=== PATIENT | female | born 1990 | race American Indian/Alaskan Native ===

== ENCOUNTER 2016-11-04 23:30 | Inpatient (IN) | payer MEDICARE, MEDICAID ==
[2016-11-04 23:50] VITALS: BMI 23.6
[2016-11-05] MEDS ORDERED: Nitroglycerin 2% Ointment Foilpak UD TOP STA (00:03)
--- NOTE | 2016-11-05 00:04 | ED PDOC ---
Arrival/HPI - General Chief Complaint: Chest Pain Time Seen by Provider: 11/04/16 23:31 Historian: Patient - History of Present Illness Narrative History of Present Illness (Text): 11/05/16 00:00 Ry Mosqueda is a 25 year old female, with a history of AIDS, hypertension, asthma and ESRD on dialysis (M,W,F), presents to the emergency department complaining of chest pain since yesterday. Reports that pain is worsened with deep inspirations and position. Denies any fever, chills, headache , dizziness, shortness of breath, abdominal pain, nausea, vomiting, diarrhea, or any other complaints at this time. Time/Duration: Other (yesterday ) Symptom Onset: Gradual Symptom Course: Unchanged Severity Level: Mild Activities at Onset: Light Context: Home Past Medical History - Provider Review Nursing Documentation Reviewed: Yes - Cardiac Hx Hypertension: Yes - Pulmonary Hx Asthma: Yes - Renal Hx Dialysis: Yes Date of Last Dialysis Treatment: 10/31/16 Other/Comment: Kidney transplant - Hematological/Oncological Hx AIDS: Yes - Psychiatric Hx Substance Use: No - Surgical History Hx Cholecystectomy: Yes Hx Kidney Transplant: Yes - Anesthesia Hx Anesthesia: Yes Family/Social History - Physician Review Nursing Documentation Reviewed: Yes Family/Social History: No Known Family HX Smoking Status: Light Smoker < 10 Cigarettes Daily Hx Alcohol Use: No Hx Substance Use: No Allergies/Home Meds Allergies/Adverse Reactions: Allergies hydromorphone HCl [From Dilaudid] Adverse Reaction (Verified 11/04/16 23:54) ITCHING sulfamethoxazole [From Bactrim] Adverse Reaction (Verified 11/04/16 23:54) SHORTNESS OF BREATH trimethoprim [From Bactrim] Adverse Reaction (Verified 11/04/16 23:54) SHORTNESS OF BREATH Home Medications: Home Meds Medication Instructions Recorded Confirmed Abacavir Sulfate [Abacavir] 300 mg PO BID 11/05/16 11/05/16 Cinacalcet [Sensipar] 60 mg PO HS 11/05/16 11/05/16 Darunavir [Prezista] 800 mg PO DAILY 11/05/16 11/05/16 Enalapril Maleate [Vasotec] 20 mg PO DAILY 11/05/16 11/05/16 Labetalol Hydrochloride [Normodyne] 300 mg PO BID 11/05/16 11/05/16 Raltegravir Potassium [Isentress] 400 mg PO BID 11/05/16 11/05/16 Ritonavir [Norvir] 100 mg PO DAILY 11/05/16 11/05/16 Sevelamer Carbonate [Renvela] 2.4 gm PO TID 11/05/16 11/05/16 Tenofovir Disoproxil Fumarate 300 mg PO DAILY 11/05/16 11/05/16 [Viread] cloNIDine [Catapres] 0.3 mg PO BID 11/05/16 11/05/16 hydrALAZINE [Apresoline] 25 mg PO TID 11/05/16 11/05/16 Review of Systems - Physician Review All systems were reviewed & negative as marked: Yes - Review of Systems Constitutional: Normal. absent: Fatigue, Fevers Respiratory: absent: SOB, Cough, Sputum Cardiovascular: Chest Pain. absent: Palpitations Gastrointestinal: Normal. absent: Abdominal Pain, Diarrhea, Nausea, Vomiting Neurological: Normal. absent: Headache, Dizziness Psychiatric: Normal Physical Exam Vital Signs Reviewed: Yes Vital Signs Temp Pulse Resp BP Pulse Ox 11/05/16 05:15 99.5 F 95 H 18 145/90 97 11/05/16 03:16 92 H 18 158/104 H 94 L 11/05/16 01:30 99.8 F H 93 H 18 181/117 H 94 L 11/04/16 23:50 86 18 179/120 H 94 L Temperature: Afebrile Blood Pressure: Hypertensive Pulse: Regular Respiratory Rate: Normal Appearance: Positive for: Well-Appearing, Non-Toxic, Comfortable Pain Distress: None Mental Status: Positive for: Alert and Oriented X 3 - Systems Exam Head: Present: Atraumatic, Normocephalic Pupils: Present: PERRL Extroacular Muscles: Present: EOMI Conjunctiva: Present: Normal Respiratory/Chest: Present: Clear to Auscultation, Good Air Exchange. No: Respiratory Distress, Accessory Muscle Use Cardiovascular: Present: Regular Rate and Rhythm, Normal S1, S2. No: Murmurs Abdomen: Present: Normal Bowel Sounds. No: Tenderness, Distention, Peritoneal Signs Upper Extremity: Present: Normal Inspection. No: Cyanosis, Edema Lower Extremity: Present: Normal Inspection. No: Edema Neurological: Present: GCS=15, CN II-XII Intact, Speech Normal Skin: Present: Warm, Dry, Normal Color. No: Rashes Psychiatric: Present: Alert, Oriented x 3, Normal Insight, Normal Concentration Medical Decision Making ED Course and Treatment: 11/05/16 00:06 Impression: A 25 year old female who presents to the emergency department complaining of chest pain since yesterday. Denies any difficulty breathing. Plan: -- EKG -- Labs, cardiac enzymes -- Nitroglycerin -- Benadryl -- Dilaudid -- HCG -- Urinalysis -- Reassess and disposition Progress Notes: 11/05/16 00:08 EKG reviewed by me: NSR @ 86 bpm. T wave abnormality. Case discussed with who is aware and agrees with the plan to admit patient to the hospital. Accepts patient under hospitalist service. Patient evaluated bedside by medical reception. - Lab Interpretations Microbiology Results: Microbiology Results 11/06/16 06:30 Blood-Venous Blood Culture - Preliminary NO GROWTH AFTER 3 DAYS 11/06/16 06:30 Blood-Venous Blood Culture - Preliminary NO GROWTH AFTER 3 DAYS Lab Results: 11/06/16 06:30 11/06/16 06:30 Lab Results 11/06/16 07:30: Hepatitis A IgM Ab Negative, Hep Bs Antigen Negative, Hep B Core IgM Ab Negative, Hepatitis C Antibody Negative 11/06/16 06:30: WBC 6.1, RBC 3.71, Hgb 10.6 L, Hct 32.7 L, MCV 88.1, MCH 28.6, MCHC 32.4, RDW 17.0 H, Plt Count 132, MPV 9.7, Gran % 64.9, Lymph % (Auto) 23.9 , [place] % (Auto) 10.3 H, Eos % (Auto) 0.7 L, Baso % (Auto) 0.2, Gran # 3.99, Lymph # 1.5, [place] # 0.6, Eos # 0.0, Baso # 0.01, Sodium 137, Potassium 6.2 H*, Chloride 95 L, Carbon Dioxide 26, Anion Gap 22 H, BUN 52 H, Creatinine 10.1 H*, Est GFR ( Amer) 6, Est GFR (Non-Af Amer) 5, Random Glucose 91, Calcium 7.5 L, Total Bilirubin 0.7, AST 14 L, ALT < 6 L, Alkaline Phosphatase 125, Lactate Dehydrogenase 370, Total Creatine Kinase 77, Troponin I 0.07, Total Protein 8.0, Albumin 4.1, Globulin 3.9, Albumin/Globulin Ratio 1.1, Amylase 153 H, Lipase 84, Procalcitonin 1.13 H, Absolute Lymphs (Flow) 1274, % CD3 Cells 62 , Absolute CD3 Count 789 L, % CD3-/CD16+/CD56+ 8, % CD4 Cells 26 L, Absolute CD4 Count 328 L, T-Help/Suppress Ratio 0.73 L, % CD8 Cells 35, Absolute CD8 Count 447, Absolute CD16/CD56 Count 107, % CD19 Cells 27, Absolute CD19 Count 343, HIV-1 RNA Qnt (RT-PCR) <1.30 not detected 11/05/16 13:00: Influenza Typ A,B (EIA) Negative for flu a/b 11/05/16 08:55: Lactate Dehydrogenase 342, Total Creatine Kinase 65, Troponin I 0.06 11/05/16 08:50: Phosphorus 8.3 H 11/05/16 00:50: WBC 6.4, RBC 4.19, Hgb 12.0, Hct 36.6, MCV 87.4, MCH 28.6, MCHC 32.8, RDW 16.7 H, Plt Count 170, MPV 10.2, Gran % 73.3 H, Lymph % (Auto) 20.6 L , [place] % (Auto) 5.2, Eos % (Auto) 0.6 L, Baso % (Auto) 0.3, Gran # 4.66, Lymph # 1.3, [place] # 0.3, Eos # 0.0, Baso # 0.02, Sodium 137, Potassium 5.6 H*, Chloride 93 L, Carbon Dioxide 25, Anion Gap 25 H, BUN 64 H, Creatinine 11.4 H*, Est GFR ( Amer) 5, Est GFR (Non-Af Amer) 4, Random Glucose 83, Calcium 8.8, Magnesium 2.3 H, Total Bilirubin 0.9, AST 22, ALT < 6 L, Alkaline Phosphatase 143 H, Lactate Dehydrogenase 522, Total Creatine Kinase 71, Troponin I 0.05, Total Protein 8.7 H, Albumin 4.6, Globulin 4.0, Albumin/ Globulin Ratio 1.2, Beta HCG, Quant < 2.39 I have reviewed the lab results: Yes - RAD Interpretation Radiology Orders: 11/05/16 03:28 CHEST PORTABLE [RAD] Stat 11/05/16 04:43 ABD & PELVIS PO CONTRAST ONLY [CT] Stat 11/05/16 11:50 NECK & CHEST W/O CONTRAST [CT] Routine Infection Control Practitioner: Radiologist - EKG Interpretation Interpreted by ED Physician: Yes Type: 12 lead EKG - Medication Orders Current Medication Orders: Abacavir Sulfate (Ziagen) 300 mg PO BID [facility] Last Admin: 11/09/16 09:51 Dose: 300 MG Acetaminophen (Tylenol 325mg Tab) 650 mg PO Q6H PRN PRN Reason: Fever >100.4 F Last Admin: 11/06/16 05:12 Dose: 650 MG MAR Pain/Vitals Document 11/06/16 05:12 SGG (Rec: 11/06/16 05:13 SGG [id number]) Vitals Temperature (97.6 F-99.6 F) 103.1 F Temperature Source Oral Atovaquone (Mepron) 750 mg PO BID [facility] Last Admin: 11/09/16 09:50 Dose: 750 MG Azithromycin (Zithromax) 500 mg PO DAILY [facility] PRN Reason: Protocol Last Admin: 11/09/16 09:50 Dose: 500 MG Cinacalcet (Sensipar) 60 mg PO HS [facility] Last Admin: 11/08/16 22:19 Dose: 60 MG Clonidine HCl (Catapres) 0.2 mg PO BID [facility] Last Admin: 11/09/16 09:51 Dose: 0.2 MG Diphenhydramine HCl (Benadryl) 50 mg PO Q4H PRN PRN Reason: Allergy symptoms Last Admin: 11/09/16 09:54 Dose: 50 MG Docusate Sodium (Colace) 100 mg PO BID [facility] Last Admin: 11/09/16 09:50 Dose: 100 MG Stool Assessment Document 11/09/16 09:50 SD (Rec: 11/09/16 09:50 SD [id number]) Pattern Bowel Pattern No Bowel Movement Hydralazine HCl (Apresoline) 25 mg PO TID [facility] Last Admin: 11/09/16 13:09 Dose: 25 MG MAR Pulse and Blood Pressure Document 11/09/16 13:09 SD (Rec: 11/09/16 13:09 SD [id number]) Blood Pressure Blood Pressure (100/60-150/90) 133/88 Meropenem 500 mg/ Sodium (Chloride) 100 mls @ 100 mls/hr IVPB DAILY [facility] PRN Reason: Protocol Last Admin: 11/09/16 09:49 Dose: 100 MLS/HR eMAR Start Stop Document 11/09/16 09:49 SD (Rec: 11/09/16 09:49 SD [id number]) Intravenous Solution Start Date 11/09/16 Start Time 09:49 End Date 11/09/16 End time 10:49 Total Infusion Time 60 Labetalol HCl (Trandate) 300 mg PO BID [facility] Last Admin: 11/09/16 09:50 Dose: 300 MG [facility] Pulse and Blood Pressure Document 11/09/16 09:50 SD (Rec: 11/09/16 09:51 SD [id number]) Pulse Pulse Rate (60-90) 78 Blood Pressure Blood Pressure (100/60-150/90) 130/87 Morphine Sulfate (Morphine) 4 mg IVP Q4H PRN PRN Reason: Pain, moderate (4-7) Last Admin: 11/09/16 13:48 Dose: 4 MG [facility] Pain Assessment Document 11/09/16 13:48 SD (Rec: 11/09/16 13:48 SD [id number]) Pain Reassessment Is this a pain reassessment? No Presence of Pain Presence of Pain Yes Pain Scale Used Pain Scale Used Numeric Location Left, Right or Bilateral Right Pain Location Body Site Back IVP Administration Document 11/09/16 13:48 SD (Rec: 11/09/16 13:48 SD [id number]) Charges for Administration # of IVP Administrations 1 Re-Assess: MAR Pain Assessment Document 11/09/16 14:48 SD (Rec: 11/09/16 14:51 SD [id number]) Pain Reassessment Is this a pain reassessment? Yes Sleep Is patient sleeping during reassessment? Yes Darunavir [Prezista] 800 Mg (Home Med ) 800 mg PO DAILY [facility] Last Admin: 11/09/16 09:52 Dose: Ramelteon 8 Mg (Home (Med)) 8 mg PO HS PRN PRN Reason: Insomnia Pantoprazole Sodium (Protonix Ec Tab) 40 mg PO 0630 [facility] Last Admin: 11/09/16 06:45 Dose: 40 MG Polyethylene Glycol (Miralax) 17 gm PO BID PRN PRN Reason: Constipation Raltegravir (Isentress) 400 mg PO BID [facility] Last Admin: 11/09/16 09:50 Dose: 400 MG Ritonavir (Norvir) 100 mg PO DAILY [facility] Last Admin: 11/09/16 09:50 Dose: 100 MG Sevelamer HCl (Renagel) 2,400 mg PO WM [facility] Last Admin: 11/09/16 11:46 Dose: Not Given Non-Admin Reason: Patient Refused Tenofovir Disoproxil Fumarate (Viread) 300 mg PO QWK [facility] Last Admin: 11/06/16 09:41 Dose: 300 MG Discontinued Medications Al Hydrox/Mg Hydrox/Simethicone (Maalox Plus 30 Ml) 30 ml PO ONCE ONE Stop: 11/06/16 03:03 Last Admin: 11/06/16 03:11 Dose: 30 ML Azithromycin (Zithromax) 250 mg PO DAILY [facility] PRN Reason: Protocol Last Admin: 11/05/16 20:00 Dose: 250 MG Clonidine HCl (Catapres) 0.3 mg PO BID [facility] Last Admin: 11/06/16 20:00 Dose: 0.3 MG Comments: Pt returned from Dialysis MAR Pulse and Blood Pressure Document 11/06/16 20:00 AP (Rec: 11/06/16 20:01 AP [id number]) Pulse Pulse Rate (60-90) 86 Blood Pressure Blood Pressure (100/60-150/90) 126/63 Diphenhydramine HCl (Benadryl) 25 mg IVP ONCE ONE Stop: 11/05/16 02:24 Last Admin: 11/05/16 02:30 Dose: 25 MG IVP Administration Document 11/05/16 02:30 KK (Rec: 11/05/16 02:52 [facility] [id number]) Charges for Administration # of IVP Administrations 1 Diphenhydramine HCl (Benadryl) 25 mg IVP ONCE ONE Stop: 11/05/16 03:23 Last Admin: 11/05/16 03:41 Dose: 25 MG IVP Administration Document 11/05/16 03:41 KK (Rec: 11/05/16 03:41 [id number] Charges for Administration # of IVP Administrations 1 Diphenhydramine HCl (Benadryl) 50 mg IVP Q4H PRN PRN Reason: Allergy symptoms Last Admin: 11/08/16 05:37 Dose: 50 MG IVP Administration Document 11/08/16 05:37 KT (Rec: 11/08/16 05:37 KT [id number]) Charges for Administration # of IVP Administrations 1 Home Med (*Refrigerator Open) Confirm Administered Dose 1 unit XX .STK-MED ONE Stop: 11/07/16 06:53 Hydromorphone HCl (Dilaudid) 2 mg IVP STAT STA Stop: 11/05/16 01:14 Last Admin: 11/05/16 01:50 Dose: 2 MG IVP Administration Document 11/05/16 01:50 KKL (Rec: 11/05/16 02:02 KKL [id number]) Charges for Administration # of IVP Administrations 1 Hydromorphone HCl (Dilaudid) 2 mg IVP STAT STA Stop: 11/05/16 03:23 Last Admin: 11/05/16 03:41 Dose: 2 MG IVP Administration Document 11/05/16 03:41 KKL (Rec: 11/05/16 03:41 KKL [id number]) Charges for Administration # of IVP Administrations 1 Ceftriaxone Sodium (Rocephin 1 Gram Ivpb) 100 mls @ 100 mls/hr IVPB DAILY [facility] PRN Reason: Protocol Last Admin: 11/05/16 21:48 Dose: 100 MLS/HR eMAR Start Stop Document 11/05/16 21:48 TTC (Rec: 11/05/16 21:48 TTC [id number]) Intravenous Solution Start Date 11/05/16 Start Time 21:48 End Date 11/05/16 End time 22:48 Total Infusion Time 60 Vancomycin HCl (Vancomycin 1gm) 250 mls @ 167 mls/hr IVPB STAT STA PRN Reason: Protocol Stop: 11/06/16 07:43 Last Admin: 11/06/16 08:51 Dose: 167 MLS/HR eMAR Start Stop Document 11/06/16 08:51 SPA (Rec: 11/06/16 08:52 SPA [id number]) Intravenous Solution Start Date 11/06/16 Start Time 08:51 End Date 11/06/16 End time 10:21 Total Infusion Time 90 Meropenem 500 mg/ Sodium (Chloride) 100 mls @ 100 mls/hr IVPB Q12 [facility] PRN Reason: Protocol Stop: 11/06/16 07:14 Last Admin: 11/06/16 07:27 Dose: 100 MLS/HR eMAR Start Stop Document 11/06/16 07:27 SPA (Rec: 11/06/16 07:28 SPA [id number]) Intravenous Solution Start Date 11/06/16 Start Time 07:28 End Date 11/06/16 End time 08:30 Total Infusion Time 62 Meropenem 500 mg/ Sodium (Chloride) 100 mls @ 100 mls/hr IVPB Q12 [facility] PRN Reason: Protocol Stop: 11/12/16 22:01 Last Admin: 11/08/16 09:50 Dose: 100 MLS/HR eMAR Start Stop Document 11/08/16 09:50 SD (Rec: 11/08/16 09:50 SD [id number]) Intravenous Solution Start Date 11/08/16 Start Time 09:50 End Date 11/08/16 End time 10:50 Total Infusion Time 60 Influenza Virus Vaccine (Fluvirin) 45 mcg IM .ONCE ONE Stop: 11/05/16 18:58 Iohexol (Omnipaque 240 (50 Ml)) Confirm Administered Dose 50 ml .ROUTE .STK-MED ONE Stop: 11/05/16 04:52 Last Admin: 11/05/16 05:38 Dose: 50 ML Iohexol (Omnipaque 350 100 Ml) Confirm Administered Dose 350 mg .ROUTE .STK-MED ONE Stop: 11/05/16 04:52 Iohexol (Omnipaque 350 100 Ml) Confirm Administered Dose 350 mg .ROUTE .STK-MED ONE Stop: 11/05/16 06:48 Lisinopril (Zestril) 20 mg PO DAILY [facility] Last Admin: 11/06/16 09:41 Dose: 20 MG MAR Pulse and Blood Pressure Document 11/06/16 09:41 SPA (Rec: 11/06/16 09:41 SPA [id number]) Pulse Pulse Rate (60-90) 93 Blood Pressure Blood Pressure (100/60-150/90) 130/85 Morphine Sulfate (Morphine) 4 mg IVP Q6 PRN PRN Reason: Pain, moderate (4-7) Last Admin: 11/08/16 09:51 Dose: 4 MG MAR Pain Assessment Document 11/08/16 09:51 SD (Rec: 11/08/16 09:51 SD [facility] [id number] Pain Reassessment Is this a pain reassessment? No Presence of Pain Presence of Pain Yes Pain Scale Used Pain Scale Used Numeric Location Upper or Lower Lower Pain Location Body Site Back Description Description Intermittent Intensity of Pain at present 8 IVP Administration Document 11/08/16 09:51 SD (Rec: 11/08/16 09:51 SD [facility] [id number]) Charges for Administration # of IVP Administrations 1 Re-Assess: [facility] Pain Assessment Document 11/08/16 10:51 SD (Rec: 11/08/16 11:22 [place] [facility] [email or web address] Pain Reassessment Is this a pain reassessment? Yes Sleep Is patient sleeping during reassessment? Yes Morphine Sulfate (Morphine) 0.5 mg IVP STAT STA Stop: 11/06/16 05:26 Last Admin: 11/06/16 05:55 Dose: 0.5 MG [facility] Pain Assessment Document 11/06/16 05:55 SGG (Rec: 11/06/16 05:55 SGG [facility] [id number] Pain Reassessment Is this a pain reassessment? No Presence of Pain Presence of Pain Yes IVP Administration Document 11/06/16 05:55 SGG (Rec: 11/06/16 05:55 SGG [id number]) Charges for Administration # of IVP Administrations 1 Morphine Sulfate (Morphine) 4 mg SC Q4H PRN PRN Reason: Pain, moderate (4-7) Last Admin: 11/09/16 02:40 Dose: 4 MG [facility] Pain Assessment Document 11/09/16 02:40 B.P (Rec: 11/09/16 02:40 B.P [id number]) Pain Reassessment Is this a pain reassessment? No Presence of Pain Presence of Pain Yes Subcutaneous Administrations Document 11/09/16 02:40 B.P (Rec: 11/09/16 02:40 B.P [id number]) Charges for Administration # of Subcutaneous Administrations 1 Re-Assess: [facility] Pain Assessment Document 11/09/16 03:40 B.P (Rec: 11/09/16 05:32 B.P [id number]) Pain Reassessment Is this a pain reassessment? Yes Sleep Is patient sleeping during reassessment? Yes Nitroglycerin (Nitro-Bid 2% Oint) 1 ea TOP STAT STA Stop: 11/05/16 00:04 Last Admin: 11/05/16 00:27 Dose: 1 EA Pneumococcal Polyvalent Vaccine (Pneumovax 23 Vaccine) 0.5 ml IM .ONCE ONE Stop: 11/05/16 18:58 Polyethylene Glycol (Miralax) 17 gm PO DAILY [facility] Last Admin: 11/06/16 14:44 Dose: 17 GM Polyethylene Glycol (Miralax) 17 gm PO BID [facility] Last Admin: 11/09/16 09:50 Dose: 17 GM Tenofovir Disoproxil Fumarate (Viread) 300 mg PO DAILY [facility] Last Admin: 11/05/16 09:57 Dose: 300 MG - Nancy Statement The provider has reviewed the documentation as recorded by the Nancy Haley Provider Attestation: All medical record entries made by the Nancy were at my direction and personally dictated by me. I have reviewed the chart and agree that the record accurately reflects my personal performance of the history, physical exam, medical decision making, and the department course for this patient. I have also personally directed, reviewed, and agree with the discharge instructions and disposition. Disposition/Present on Arrival - Present on Arrival Any Indicators Present on Arrival: No History of DVT/PE: No History of Uncontrolled Diabetes: No Urinary Catheter: No History of Decub. Ulcer: No History Surgical Site Infection Following: None - Disposition Have Diagnosis and Disposition been Completed?: Yes Diagnosis: Chest pain, HIV (human immunodeficiency virus infection) Disposition: HOSPITALIZED Disposition Time: 03:30 Patient Problems: Current Active Problems Problem Status Diagnosed Chest pain Acute ESRD on hemodialysis Acute HIV (human immunodeficiency virus infection) Acute HTN (hypertension) Acute Hyperphosphatemia Acute Condition: GOOD
[2016-11-05 01:03] LABS: ADD MANUAL DIFF? NO
[2016-11-05] MEDS ORDERED: HYDROmorphone 2 mg/ml ISec IVP STA ×2 (01:13→03:22)
[2016-11-05 01:21] LABS: BASO # 0.02 K/mm3 (0.0-2.0); BASO % 0.3 % (0.0-3.0); EOS % 0.6 % (1.5-5.0); GRAN # 4.66 (1.4-6.5); GRAN % 73.3 % (50.0-68.0); HEMATOCRIT 36.6 % (36.0-48.0); LYMPH # 1.3 (1.2-3.4); LYMPH % 20.6 % (22.0-35.0); MEAN CELL VOLUME 87.4 fL (80.0-105.0); MEAN CORPUSCULAR HEMOGLOBIN 28.6 pg (25.0-35.0); MEAN CORPUSCULAR HGB CONC 32.8 g/dl (31.0-37.0); MEAN PLATELET VOLUME 10.2 fl (7.0-11.0); MONO # 0.3 (0.1-0.6); MONO % 5.2 % (1.0-6.0); PLATELET COUNT 170 10^3/uL (120.0-450.0); RED CELL DISTRIBUTION WIDTH 16.7 % (11.5-14.5); WHITE BLOOD COUNT 6.4 10^3/ul (4.5-11.0)
[2016-11-05 01:30] LABS: TROPONIN I 0.05 ng/mL
[2016-11-05 01:54] LABS: ALB/GLOB RATIO 1.2 (1.1-1.8); ALKALINE PHOSPHATASE 143 U/L (38-133); AST/SGOT 22 U/L (15-39); BILIRUBIN,TOTAL 0.9 mg/dL (0.2-1.3); BLOOD UREA NITROGEN 64 mg/dL (7-21); CALCIUM 8.8 mg/dL (8.4-10.5); CARBON DIOXIDE 25 mmol/L (21-33); CHLORIDE 93 mmol/L (98-107); GFR AFRICAN-AMERICAN 5; GLUCOSE,RANDOM 83 mg/dL (70-110); MAGNESIUM 2.3 mg/dL (1.7-2.2); SODIUM 137 mmol/L (132-148); TOTAL PROTEIN 8.7 g/dL (5.8-8.3)
[2016-11-05 02:13] LABS: ALT/SGPT < 6 U/L (7-56)
[2016-11-05 02:15] LABS: POTASSIUM 5.6 mmol/L (3.6-5.0)
[2016-11-05] MEDS ORDERED: DiphenhydrAMINE 50 mg/ml Inj IVP ONE ×2 (02:23→03:22)
--- NOTE | 2016-11-05 04:29 | CP.PCM.HP ---
History of Present Illness - History of Present Illness History of Present Illness: This is a 25 yo female with pmh HIV, asthma, HTN, ESRD on dialysis MWF presenting with chest pain x 1 day. Pain began around 9 PM day prior to evaluation. She was laying in bed at home. Pain came on suddenly, midsternal. Ultimately, radiated to right breast and down along right side to right abdomen. Describes it as pressure sensation. Also hurts when she takes a deep breath and somewhat reproducible to palpation. Has associated sob and non productive cough. Pain is 10/10, staying the same. Laying on left side makes it better, laying flat makes it worse. Pt is on her period now. She does not make urine. She also reports 4-5 episodes of non bloody diarrhea. PMH: HTN, asthma, HIV, ESRD MWF dialysis PSH: fistula for dialysis, kidney transplant, cholecystectomy Allergies: bactrim FH: Mother- - ESRD Meds at home: hydralazine, labetalol, sensipar, renvela, prezista, abacavir, norvir, isentress, clonidine, enalapril, viread Social hx: Former smoker. quit 1 year ago, smoked for 3-4 yrs, would smoke 2-3 cigs/day. Denies drinking. Smokes marijuana. Present on Admission - Present on Admission Any Indicators Present on Admission: No History of DVT/PE: No History of Uncontrolled Diabetes: No Urinary Catheter: No Decubitus Ulcer Present: No Review of Systems - Review of Systems All systems: reviewed and no additional remarkable complaints except Review of Systems: Negative except as per HPI. Past Patient History - Infectious Disease Hx of Infectious Diseases: None - Tetanus Immunizations Tetanus Immunization: Unknown - Past Medical History & Family History Past Medical History?: Yes Pertinent Family History: Mother- ESRD - Past Social History Smoking Status: Former Smoker Chewing Tobacco Use: No Cigar Use: No Alcohol: None Drugs: Cannabis Home Situation {Lives}: With Family Domestic Violence: Negative - CARDIAC Hx Hypertension: Yes - PULMONARY Hx Asthma: Yes - RENAL Hx Dialysis: Yes Date of Last Dialysis Treatment: 10/31/16 Other/Comment: Kidney transplant - HEMATOLOGICAL/ONCOLOGICAL Hx AIDS: Yes - PSYCHIATRIC Hx Substance Use: No - SURGICAL HISTORY Hx Cholecystectomy: Yes Hx Kidney Transplant: Yes - ANESTHESIA Hx Anesthesia: Yes Meds Allergies/Adverse Reactions: Allergies Allergy/AdvReac Type Severity Reaction Status Date / Time hydromorphone HCl AdvReac ITCHING Verified 11/04/16 23:54 [From Dilaudid] sulfamethoxazole AdvReac SHORTNESS Verified 11/04/16 23:54 [From Bactrim] OF BREATH trimethoprim [From Bactrim] AdvReac SHORTNESS Verified 11/04/16 23:54 OF BREATH Physical Exam - Constitutional Appears: Non-toxic, No Acute Distress - Head Exam Head Exam: ATRAUMATIC, NORMAL INSPECTION, NORMOCEPHALIC - Eye Exam Eye Exam: EOMI - ENT Exam ENT Exam: Mucous Membranes Moist - Neck Exam Neck exam: Positive for: Normal Inspection - Respiratory Exam Respiratory Exam: Clear to Auscultation Bilateral, NORMAL BREATHING PATTERN - Cardiovascular Exam Cardiovascular Exam: REGULAR RHYTHM - GI/Abdominal Exam GI & Abdominal Exam: Tenderness. absent: Guarding Additional comments: Mild tenderness RUQ - Extremities Exam Extremities exam: Positive for: normal inspection - Back Exam Back exam: CVA tenderness (R) - Neurological Exam Neurological exam: Alert - Psychiatric Exam Psychiatric exam: Normal Affect, Normal Mood - Skin Skin Exam: Dry, Intact, Normal Color, Warm Results - Vital Signs Recent Vital Signs: Last Vital Signs Temp 99.8 F H 11/05/16 01:30 Pulse 92 H 11/05/16 03:16 Resp 18 11/05/16 03:16 BP 158/104 H 11/05/16 03:16 Pulse Ox 94 L 11/05/16 03:16 - Labs Result Diagrams: 11/05/16 00:50 11/05/16 00:50 Labs: Laboratory Results - last 24 hr 11/05/16 00:50 WBC 6.4 RBC 4.19 Hgb 12.0 Hct 36.6 MCV 87.4 MCH 28.6 MCHC 32.8 RDW 16.7 H Plt Count 170 MPV 10.2 Gran % 73.3 H Lymph % (Auto) 20.6 L [place] % (Auto) 5.2 Eos % (Auto) 0.6 L Baso % (Auto) 0.3 Gran # 4.66 Lymph # 1.3 [place] # 0.3 Eos # 0.0 Baso # 0.02 Sodium 137 Potassium 5.6 H* Chloride 93 L Carbon Dioxide 25 Anion Gap 25 H BUN 64 H Creatinine 11.4 H* Est GFR ( Amer) 5 Est GFR (Non-Af Amer) 4 Random Glucose 83 Calcium 8.8 Magnesium 2.3 H Total Bilirubin 0.9 AST 22 ALT < 6 L Alkaline Phosphatase 143 H Lactate Dehydrogenase 522 Total Creatine Kinase 71 Troponin I 0.05 Total Protein 8.7 H Albumin 4.6 Globulin 4.0 Albumin/Globulin Ratio 1.2 Assessment & Plan - Assessment and Plan (Free Text) Assessment: This is a 25 yo female with past medical hx of HTN, HIV, ESRD on dialysis presenting with chest pain and abdominal pain x 1 day 1. Chest pain -dialysis scheduled for thursday -we will trend cardiac enzymes -cp reproducible to palpation -pt does have cva/flank and abdominal tenderness -we will order serum hcg to rule out -ct abdomen/pelvis with IV/PO contrast -cxr pending 2. Hx of HTN -continue hydralazine -continue clonidine -continue enalapril 3. Hx of HIV -continue home meds 4. Hx of ESRD -pt to get dialysis MWF -continue sensipar -continue renvela 5. hx of asthma -continue to monitor 6. GI/DVT ppx -SCDs -protonix dw Dr. Salinas
[2016-11-05] MEDS ORDERED: Iohexol 240 (50 ml) ONE (04:51)
[2016-11-05] MEDS ORDERED: Iohexol 350 MG/100 ML VIAL ONE ×2 (04:51→06:47)
--- NOTE | 2016-11-05 07:22 | RAD ---
HISTORY: cp COMPARISON: No prior. FINDINGS: LUNGS: Symmetrical normal lung volumes Coalescent faint airspace opacities right lung base and left mid-upper lung zone -mostly peripheral PLEURA: No significant pleural effusion identified, no pneumothorax apparent. CARDIOVASCULAR: Mild cardiomegaly OSSEOUS STRUCTURES: No significant abnormalities. VISUALIZED UPPER ABDOMEN: Normal. OTHER FINDINGS: Biapical vascular stentsEKG leads in place. Right supraclavicular thoracic inlet asymmetrical soft tissue fullness -etiology uncertain IMPRESSION: Vague bilateral mostly peripheral airspace opacities- infiltrates with or without underlying pleural parenchymal pathology arms some thoughts. Consider CT neck- CT chest contrast enhancement for further evaluation.
--- NOTE | 2016-11-05 09:01 | CARD ---
APPROVED REPORT EKG Measurement Heart [id number] <Conclusion> Normal sinus rhythm T wave abnormality, consider lateral ischemia Abnormal ECG
[2016-11-05 09:27] LABS: TROPONIN I 0.06 ng/mL
--- NOTE | 2016-11-05 09:27 | CT ---
PROCEDURE: CT Abdomen and Pelvis without intravenous contrast HISTORY: abdominal pain COMPARISON: None. TECHNIQUE: Without contrast.. Contrast Dose: Radiation dose: Total exam DLP = 194 mGy-cm. FINDINGS: LOWER THORAX: Ground-glass interstitial infiltrates are seen in both lower lobes LIVER: Unremarkable. No gross lesion or ductal dilatation. GALLBLADDER AND BILE DUCTS: Unremarkable. PANCREAS: Unremarkable. No gross lesion or ductal dilatation. SPLEEN: Unremarkable. ADRENALS: Unremarkable. No mass. KIDNEYS AND URETERS: There is severe atrophy of both kidneys VASCULATURE: Unremarkable. No aortic aneurysm. Numerous vascular collaterals are seen in the subcutaneous fat of the anterior abdomen. BOWEL: Unremarkable. No obstruction. No gross mural thickening. APPENDIX: Unremarkable. Normal appendix. PERITONEUM: Unremarkable. No free fluid. No free air. LYMPH NODES: Unremarkable. No enlarged lymph nodes. BLADDER: Unremarkable. REPRODUCTIVE: Unremarkable. BONES: No acute fracture. OTHER FINDINGS: None. IMPRESSION: Severe atrophy of the kidneys. No acute intra-abdominal findings Ground-glass interstitial densities of both lung bases
[2016-11-05] MEDS: DARUNAVIR 800 MG PO SCH (10:05)
[2016-11-05] MEDS: Morphine 4 mg/ml ISec IVP PRN ×2 (10:46→18:09)
--- NOTE | 2016-11-05 13:20 | CT ---
PROCEDURE: CT Neck, Chest, HISTORY: soft tissue fullness on cxr COMPARISON: None. TECHNIQUE: Contrast dose: Radiation dose: Total exam DLP = 1111 mGy-cm. FINDINGS: CT OF THE NECK: PHARYNX: Nasopharynx: Unremarkable. Oropharnx: Unremarkable. Hypopharynx: Unremarkable. There is partial opacification of the right maxillary sinus LYMPH NODES: There is extensive supraclavicular adenopathy bilaterally right greater than left. The largest node measures 2.8 cm as seen on coronal image 60. There is also bilateral cervical adenopathy. VASCULATURE: Unremarkable. GLANDS: Unremarkable. CERVICAL SPINE: Unremarkable. CT OF THE CHEST: LUNGS: Bilateral ground-glass interstitial infiltrates are seen. There is also more focal area of alveolar consolidation in the left upper lobe with air bronchograms. Findings are consistent with pneumonia MEDIASTINUM: Unremarkable thoracic aorta. No aneurysm or dissection. Normal sized heart. Pulmonary arterial truck unremarkable. No vascular congestion. There is mediastinal adenopathy PLEURA: No pleural fluid. No pneumothorax. BONES: No fracture. No destructive lesion. IMPRESSION: Bilateral interstitial infiltrates. Focal alveolar infiltrate in the left upper lobe consistent with pneumonia. Extensive supraclavicular adenopathy. Mediastinal adenopathy.
--- NOTE | 2016-11-05 14:21 | CON ---
DATE: 11/05/2016 REASON FOR CONSULTATION: Chest pain. HISTORY OF PRESENT ILLNESS: The patient is 25 years old -[place] female who is HIV positive, possibly infection; history of end-stage renal disease, on hemodialysis for the past 9 yea rs. The patient has her medical support assistant and the primary physician as well as hemodialysis in [place], and when she requires any emergency care she goes to [facility]. The patient did re port right-sided chest pain and could not wait for a long time at [facility] and then she came to [facility]. The patient reports sharp right-sided chest pain. She denies any fev er or chills, productive cough or wheezing at this time. The patient has a history of bronchial asth ma. SOCIAL HISTORY: The patient is a nonsmoker, nondrinker. MEDICATIONS: Hydralazine 25 mg t.i.d., clonidine 0.3 mg twice a day, morphine 4 mg intravenous q. 6 hours p.r.n. ____ antiviral medications, including Norvir and Ziagen. The patient is also on Vistar il 20 mg once a day. PHYSICAL EXAMINATION: GENERAL: The patient is a young middle-aged female who does not appear to be in any distress. VITAL SIGNS: Blood pressure 157/105, heart rate 92, temperature 99.4, respiration 20. HEENT: Facial edema. NECK: No JVD. CHEST: Minimal dry crackles. HEART: S1, S2 regular. EXTREMITIES: No edema. LABORATORY DATA: SMA-7: Sodium 137, potassium 5.6, chloride 93, CO2 25, glucose 83, BUN 64, creatin ine 11.4. Two sets of troponins, 0.05 and 0.06. Urine drug screen is negative. CBC: WBC 6.4, hemo globin 12, hematocrit 36.6, platelet count 170,000. EKG revealed sinus rhythm at a rate of 86, nonspecific lateral T-wave changes. Chest x-ray revealed borderline cardiomegaly and bilateral aveolar infiltrates. Neck and chest CT scan without contrast revealed bilateral interstitial infiltrate, focal alveolar in filtrate in the left upper lobe consistent with pneumonia, and extensive supraclavicular adenopathy a nd mediastinal adenopathy. Abdomen and pelvic CAT scan with p.o. contrast revealed severe atrophy of the kidneys. No acute intr aabdominal findings. ASSESSMENT: 1. Atypical chest pain. 2. End-stage renal disease, on hemodialysis. 3. Human immunodeficiency virus positive. 4. Consider bilateral pneumonia. 5. Hyperkalemia. RECOMMENDATIONS: Continue current hydralazine 25 mg t.i.d., labetalol 300 mg twice a day, and Zestri l 20 mg daily. Repeat BMP after hemodialysis to ensure normal clinic status. Obtain an echocardiogr am. Yovani Larios MD cc: [id number] TT: 11/05/2016 14:21:40 Confirmation # [id number] Dictation # [id number] mn
[2016-11-05] MEDS: DiphenhydrAMINE 50 mg/ml Inj IVP PRN ×2 (14:46→21:48)
--- NOTE | 2016-11-05 17:05 | CP.PCM.CON ---
History of Present Illness - History of Present Illness History of Present Illness: Nephrology consult note: 25 yo F w/ pmh of htn, HIV on HAART, ESRD on HD (MWF, s/p failed kidney transplant), asthma, presented to ED with intermittent chest pain of 1 day duration; Patient reports mid-sternal chest pain, with radiation to back, lasting about 20 -25 minutes; also with associated shortness of breath, chills and subjective fever; Patient's last HD session was 2 days ago per routine, lasting 3.5 hrs, came off at 58 kg (reports dry weight 57 kg); Review of Systems - Constitutional Constitutional: Chills, Fever - EENT Eyes: absent: Blurred Vision, Change in Vision Nose/Mouth/Throat: absent: Nasal Discharge, Sinus Pressure, Sore Throat - Cardiovascular Cardiovascular: As Per HPI. absent: Leg Edema - Respiratory Respiratory: As Per HPI, Dyspnea - Gastrointestinal Gastrointestinal: Diarrhea. absent: Nausea, Vomiting Additional comments: Diarrhea of one day duration, multiple episodes of water stool; - Genitourinary Additional comments: Anuric - Reproductive: Female Reproductive:Female: Currently Menstual - Neurological Neurological: Numbness Additional comments: L fifth digit intermittent numbness Past Patient History - Infectious Disease Hx of Infectious Diseases: None - Tetanus Immunizations Tetanus Immunization: Unknown - Past Medical History & Family History Past Medical History?: Yes - Past Social History Smoking Status: Light Smoker < 10 Cigarettes Daily - CARDIAC Hx Hypertension: Yes - PULMONARY Hx Asthma: Yes - RENAL Hx Dialysis: Yes Date of Last Dialysis Treatment: 10/31/16 Other/Comment: Kidney transplant - HEMATOLOGICAL/ONCOLOGICAL Hx AIDS: Yes - PSYCHIATRIC Hx Substance Use: No - SURGICAL HISTORY Hx Cholecystectomy: Yes Hx Kidney Transplant: Yes - ANESTHESIA Hx Anesthesia: Yes Meds Allergies/Adverse Reactions: Allergies Allergy/AdvReac Type Severity Reaction Status Date / Time hydromorphone HCl AdvReac ITCHING Verified 11/04/16 23:54 [From Dilaudid] sulfamethoxazole AdvReac SHORTNESS Verified 11/04/16 23:54 [From Bactrim] OF BREATH trimethoprim [From Bactrim] AdvReac SHORTNESS Verified 11/04/16 23:54 OF BREATH - Medications Medications: Current Medications Abacavir Sulfate (Ziagen) 300 mg PO BID [facility] Last Admin: 11/05/16 09:58 Dose: 300 mg Cinacalcet (Sensipar) 60 mg PO HS [facility] Clonidine HCl (Catapres) 0.3 mg PO BID [facility] Last Admin: 11/05/16 09:55 Dose: 0.3 mg Diphenhydramine HCl (Benadryl) 50 mg IVP Q4H PRN PRN Reason: Allergy symptoms Last Admin: 11/05/16 14:46 Dose: 50 mg Hydralazine HCl (Apresoline) 25 mg PO TID [facility] Last Admin: 11/05/16 13:36 Dose: Not Given Labetalol HCl (Trandate) 300 mg PO BID [facility] Last Admin: 11/05/16 09:57 Dose: 300 mg Lisinopril (Zestril) 20 mg PO DAILY [facility] Last Admin: 11/05/16 09:57 Dose: 20 mg Morphine Sulfate (Morphine) 4 mg IVP Q6 PRN PRN Reason: Pain, moderate (4-7) Last Admin: 11/05/16 10:46 Dose: 4 mg Darunavir [Prezista] 800 Mg (Home Med ) 800 mg PO DAILY [facility] Last Admin: 11/05/16 10:05 Dose: Not Given Pantoprazole Sodium (Protonix Ec Tab) 40 mg PO 0630 [facility] Raltegravir (Isentress) 400 mg PO BID [facility] Last Admin: 11/05/16 09:56 Dose: 400 mg Ritonavir (Norvir) 100 mg PO DAILY [facility] Last Admin: 11/05/16 09:56 Dose: 100 mg Sevelamer HCl (Renagel) 2,400 mg PO WM [facility] Last Admin: 11/05/16 13:32 Dose: 2,400 mg Tenofovir Disoproxil Fumarate (Viread) 300 mg PO DAILY [facility] Last Admin: 11/05/16 09:57 Dose: 300 mg Physical Exam - Constitutional Appears: Non-toxic, No Acute Distress - Head Exam Head Exam: NORMAL INSPECTION - Eye Exam Eye Exam: Normal appearance. absent: Scleral icterus - ENT Exam ENT Exam: Mucous Membranes Moist - Neck Exam Neck exam: Positive for: Tenderness Additional comments: L anterior neck swelling and tenderness (reports pain as being new onset) - Respiratory Exam Respiratory Exam: Clear to Auscultation Bilateral, NORMAL BREATHING PATTERN - Cardiovascular Exam Cardiovascular Exam: REGULAR RHYTHM, +S1, +S2 - GI/Abdominal Exam GI & Abdominal Exam: Soft. absent: Distended, Tenderness - Extremities Exam Additional comments: No leg edema; L arm AVF w/ good thrill/bruit; multiple aneurysmal dilatations but no thinning of skin over them; - Neurological Exam Neurological exam: Alert, Oriented x3 - Psychiatric Exam Psychiatric exam: Normal Affect, Normal Mood - Skin Skin Exam: Normal Color, Warm Results - Vital Signs Recent Vital Signs: Last Vital Signs Temp 99.4 F 11/05/16 11:55 Pulse 95 H 11/05/16 14:00 Resp 20 11/05/16 11:55 BP 118/74 11/05/16 13:39 Pulse Ox 97 11/05/16 05:15 - Labs Result Diagrams: 11/05/16 00:50 11/05/16 00:50 Labs: Laboratory Results - last 24 hr 11/05/16 11/05/16 08:50 08:55 Phosphorus 8.3 H Lactate Dehydrogenase 342 Total Creatine Kinase 65 Troponin I 0.06 - Imaging and Cardiology CT scan - chest Status: Image reviewed by me, Report reviewed by me Assessment & Plan (1) ESRD on hemodialysis Assessment and Plan: Mild hyperkalemia, otherwise stable volume status; chest CT being read as PNA rather than pulmonary edema; dialyzing today per routine for 3.5 hrs on 2k/2.5Ca /34HCO3 bath for 3.5 hrs with UF goal 2 L (decreased goal due to report of diarrhea all day yesterday); Status: Acute (2) HTN (hypertension) Assessment and Plan: Uncontrolled, being restarted on home meds (enalapril not on formulary, being given lisinopril); not volume overloaded on exam but will likely benefit from UF on HD; Status: Acute (3) Chest pain Assessment and Plan: Possibly due to PNA; cardiology consulted as well; need to dose any abx for HD; Status: Acute (4) Hyperphosphatemia Assessment and Plan: Markedly uncontrolled; patient counseled on harms of vascular calcification; uses powder form of sevelamer at home (not available here); continue with 3 tabs with meals; Status: Acute (5) HIV (human immunodeficiency virus infection) Assessment and Plan: On 5 drug HAART regimen; raltegravir needs to be re-dosed after HD; also, tenofovir dosing should be weekly; Status: Acute
[2016-11-05] MEDS ORDERED: Pneumococcal 23-Valent Vaccine IM ONE (18:57)
[2016-11-05] MEDS ORDERED: Influenza Vaccine 45 MCG/0.5 ml IM ONE (18:57)
[2016-11-05] MEDS ORDERED: cefTRIAXone 1 gm 100 ML IVPB SCH (19:36)
--- NOTE | 2016-11-05 23:48 | CP.PCM.PN ---
Subjective - Date & Time of Evaluation Date of Evaluation: 11/05/16 Time of Evaluation: 23:45 - Subjective Subjective: Night call RN paged stating that pt had a fever of 101 during dialysis. However, there was no written record of pt's temperature. While on the floor back from dialysis, her temp was mildly elevated at 99.5. Pt states subjective chill, (+) sharp cp on palpation. Denies [facility], SOB, N/V/D/C. She is anuric. Daily bowel movement Objective - Vital Signs/Intake and Output Vital Signs (last 24 hours): Temp Pulse Resp BP Pulse Ox 99.4 F 92 H 20 144/95 H 97 11/05/16 18:46 11/05/16 18:46 11/05/16 18:46 11/05/16 18:46 11/05/16 05:15 Intake and Output: 11/05/16 11/06/16 18:59 06:59 Intake Total 300 Output Total 0 Balance 300 - Medications Medications: Current Medications Abacavir Sulfate (Ziagen) 300 mg PO BID [facility] Last Admin: 11/05/16 18:09 Dose: 300 mg Acetaminophen (Tylenol 325mg Tab) 650 mg PO Q6H PRN PRN Reason: Fever >100.4 F Last Admin: 11/05/16 19:01 Dose: 650 mg Azithromycin (Zithromax) 250 mg PO DAILY [facility] PRN Reason: Protocol Last Admin: 11/05/16 20:00 Dose: 250 mg Cinacalcet (Sensipar) 60 mg PO HS [facility] Last Admin: 11/05/16 21:39 Dose: 60 mg Clonidine HCl (Catapres) 0.3 mg PO BID [facility] Last Admin: 11/05/16 18:07 Dose: 0.3 mg Diphenhydramine HCl (Benadryl) 50 mg IVP Q4H PRN PRN Reason: Allergy symptoms Last Admin: 11/05/16 21:48 Dose: 50 mg Hydralazine HCl (Apresoline) 25 mg PO TID [facility] Last Admin: 11/05/16 18:06 Dose: 25 mg Ceftriaxone Sodium (Rocephin 1 Gram Ivpb) 100 mls @ 100 mls/hr IVPB DAILY [facility] PRN Reason: Protocol Last Admin: 11/05/16 21:48 Dose: 100 mls/hr Labetalol HCl (Trandate) 300 mg PO BID [facility] Last Admin: 11/05/16 18:08 Dose: 300 mg Lisinopril (Zestril) 20 mg PO DAILY [facility] Last Admin: 11/05/16 09:57 Dose: 20 mg Morphine Sulfate (Morphine) 4 mg IVP Q6 PRN PRN Reason: Pain, moderate (4-7) Last Admin: 11/05/16 18:09 Dose: 4 mg Darunavir [Prezista] 800 Mg (Home Med ) 800 mg PO DAILY [facility] Last Admin: 11/05/16 10:05 Dose: Not Given Pantoprazole Sodium (Protonix Ec Tab) 40 mg PO 0630 [facility] Raltegravir (Isentress) 400 mg PO BID [facility] Last Admin: 11/05/16 18:07 Dose: 400 mg Ritonavir (Norvir) 100 mg PO DAILY [facility] Last Admin: 11/05/16 09:56 Dose: 100 mg Sevelamer HCl (Renagel) 2,400 mg PO WM [facility] Last Admin: 11/05/16 19:09 Dose: Not Given Tenofovir Disoproxil Fumarate (Viread) 300 mg PO DAILY [facility] Last Admin: 11/05/16 09:57 Dose: 300 mg - Constitutional Appears: No Acute Distress - Head Exam Head Exam: ATRAUMATIC, NORMOCEPHALIC - Eye Exam Eye Exam: EOMI, Normal appearance, PERRL Pupil Exam: NORMAL ACCOMODATION - ENT Exam ENT Exam: Mucous Membranes Moist - Neck Exam Neck Exam: Normal Inspection. absent: Meningismus - Respiratory Exam Respiratory Exam: Clear to Ausculation Bilateral, NORMAL BREATHING PATTERN. absent: Rales, Rhonchi, Wheezes - Cardiovascular Exam Cardiovascular Exam: REGULAR RHYTHM, +S1, +S2. absent: Murmur - GI/Abdominal Exam GI & Abdominal Exam: Soft, Tenderness (tenderness on palpation on epigastric area.), Normal Bowel Sounds - Back Exam Back Exam: absent: CVA tenderness (L), CVA tenderness (R) - Neurological Exam Neurological Exam: Alert, Awake, Oriented x3 - Psychiatric Exam Psychiatric exam: Normal Affect, Normal Mood - Skin Skin Exam: Dry, Normal Color Assessment and Plan - Assessment and Plan (Free Text) Plan: Fever Epigastric pain only on palpation, where the tele monitor box sits on Difficult blood drawn recently diagnosed with atypical chest pain Hx HIV - Tylenol PRN - Blood culture, vbg lactate, CD4 count, HIV viral load, CBC, CMP, lipase, amylase - ALL CANNOT BE DRAWN DUE TO DIFFICULT ACCESS - Continue observe off antibiotics - ID consult
[2016-11-06] MEDS: Pantoprazole 40 mg EC Tab PO SCH ×2 (00:39→05:42)
[2016-11-06] MEDS ORDERED: RAMELTEON 8 MG PO PRN (01:00)
[2016-11-06] MEDS: Morphine 4 mg/ml ISec IVP PRN ×4 (02:52→21:58)
[2016-11-06] MEDS ORDERED: Alum-Mag Hydrox-Simethicone Susp (30 mL) PO ONE (03:02)
[2016-11-06] MEDS ORDERED: Morphine 2 mg/ml ISec IVP STA (05:25)
[2016-11-06] MEDS ORDERED: Vancomycin 1gm in NS 250ml 250 ML IVPB STA (06:14)
[2016-11-06] MEDS ORDERED: Meropenem 500 MG in Sodium Chloride 0.9% 100 ML IVPB SCH (06:15)
[2016-11-06 07:30] LABS: ADD MANUAL DIFF? NO
[2016-11-06 07:34] LABS: BASO # 0.01 K/mm3 (0.0-2.0); BASO % 0.2 % (0.0-3.0); EOS % 0.7 % (1.5-5.0); GRAN # 3.99 (1.4-6.5); GRAN % 64.9 % (50.0-68.0); HEMATOCRIT 32.7 % (36.0-48.0); LYMPH # 1.5 (1.2-3.4); LYMPH % 23.9 % (22.0-35.0); MEAN CELL VOLUME 88.1 fL (80.0-105.0); MEAN CORPUSCULAR HEMOGLOBIN 28.6 pg (25.0-35.0); MEAN CORPUSCULAR HGB CONC 32.4 g/dl (31.0-37.0); MEAN PLATELET VOLUME 9.7 fl (7.0-11.0); MONO # 0.6 (0.1-0.6); MONO % 10.3 % (1.0-6.0); PLATELET COUNT 132 10^3/uL (120.0-450.0); WHITE BLOOD COUNT 6.1 10^3/ul (4.5-11.0)
[2016-11-06 07:46] LABS: ALB/GLOB RATIO 1.1 (1.1-1.8); ALKALINE PHOSPHATASE 125 U/L (38-133); AMYLASE 153 U/L (35-125); AST/SGOT 14 U/L (15-39); BILIRUBIN,TOTAL 0.7 mg/dL (0.2-1.3); BLOOD UREA NITROGEN 52 mg/dL (7-21); CALCIUM 7.5 mg/dL (8.4-10.5); CARBON DIOXIDE 26 mmol/L (21-33); CHLORIDE 95 mmol/L (98-107); GFR AFRICAN-AMERICAN 6; GLUCOSE,RANDOM 91 mg/dL (70-110); LIPASE 84 U/L (23-300); SODIUM 137 mmol/L (132-148)
[2016-11-06 07:57] LABS: TROPONIN I 0.07 ng/mL
[2016-11-06 08:08] LABS: ALT/SGPT < 6 U/L (7-56)
[2016-11-06 08:10] LABS: POTASSIUM 6.2 mmol/L (3.6-5.0)
[2016-11-06] MEDS: DiphenhydrAMINE 50 mg/ml Inj IVP PRN ×2 (08:37→19:55)
[2016-11-06] MEDS: DARUNAVIR 800 MG PO SCH (09:36)
--- NOTE | 2016-11-06 11:16 | CP.PCM.CON ---
History of Present Illness - History of Present Illness History of Present Illness: 25 year old female with PMH of HIV, diagnosed years ago, does not recall most recent CD4 count (but states it is above 200) and also does not recall most recent virus load, currently on cART (with history of low CD4 count and was previously on prophylaxis, ESRD on HD S/P kidney transplant, S/P cholecystectomy , asthma, HTN came in to the ED complaining of a 1-2 day history of chest pain associated with cough which was non-productive and shortness of breath. She also developed fever here in the hospital. She denies headache or dizziness, no sore throat, no rhinorrhea, no abdominal pain, no diarrhea, no nausea or vomiting, no vaginal bleeding or discharge, no dysuria, no weight loss, no night sweats, no chronic cough, no hemoptysis. In the ED, CT chest showed probable left upper lobe infiltrates, as well as ground glass opacities in both lungs. The patient states that she has been tested for TB in her HIV clinic and it was negative. Infectious Diseases consult is requested to further evaluate and manage. Review of Systems - Review of Systems All systems: reviewed and no additional remarkable complaints except (as per HPI ) Past Patient History - Infectious Disease Hx of Infectious Diseases: None - Tetanus Immunizations Tetanus Immunization: Unknown - Past Medical History & Family History Past Medical History?: Yes Past Family History: Reviewed and not pertinent - Past Social History Smoking Status: Former Smoker Alcohol: None Drugs: Cannabis Home Situation {Lives}: With Family - CARDIAC Hx Hypertension: Yes - PULMONARY Hx Asthma: Yes - RENAL Date of Last Dialysis Treatment: 10/31/16 - HEMATOLOGICAL/ONCOLOGICAL Hx AIDS: (pt would not confirm) - MUSCULOSKELETAL/RHEUMATOLOGICAL Hx Falls: No - PSYCHIATRIC Hx Substance Use: No - SURGICAL HISTORY Hx Cholecystectomy: Yes Hx Kidney Transplant: Yes Other/Comment: left upper arm av shunt - ANESTHESIA Hx Anesthesia: Yes Meds Allergies/Adverse Reactions: Allergies Allergy/AdvReac Type Severity Reaction Status Date / Time hydromorphone HCl AdvReac ITCHING Verified 11/04/16 23:54 [From Dilaudid] sulfamethoxazole AdvReac SHORTNESS Verified 11/04/16 23:54 [From Bactrim] OF BREATH trimethoprim [From Bactrim] AdvReac SHORTNESS Verified 11/04/16 23:54 OF BREATH - Medications Medications: Current Medications Abacavir Sulfate (Ziagen) 300 mg PO BID COUNT INCLUDES THE [facility] Last Admin: 11/05/16 18:09 Dose: 300 mg Acetaminophen (Tylenol 325mg Tab) 650 mg PO Q6H PRN PRN Reason: Fever >100.4 F Last Admin: 11/06/16 05:12 Dose: 650 mg Azithromycin (Zithromax) 250 mg PO DAILY [facility] PRN Reason: Protocol Last Admin: 11/05/16 20:00 Dose: 250 mg Cinacalcet (Sensipar) 60 mg PO HS COUNT INCLUDES THE [facility] Last Admin: 11/05/16 21:39 Dose: 60 mg Clonidine HCl (Catapres) 0.3 mg PO BID COUNT INCLUDES THE [facility] Last Admin: 11/05/16 18:07 Dose: 0.3 mg Diphenhydramine HCl (Benadryl) 50 mg IVP Q4H PRN PRN Reason: Allergy symptoms Last Admin: 11/05/16 21:48 Dose: 50 mg Hydralazine HCl (Apresoline) 25 mg PO TID COUNT INCLUDES THE [facility] Last Admin: 11/05/16 18:06 Dose: 25 mg Vancomycin HCl (Vancomycin 1gm) 250 mls @ 167 mls/hr IVPB STAT STA PRN Reason: Protocol Stop: 11/06/16 07:43 Meropenem 500 mg/ Sodium (Chloride) 100 mls @ 100 mls/hr IVPB Q12 [facility]RA PRN Reason: Protocol Stop: 11/06/16 07:14 Labetalol HCl (Trandate) 300 mg PO BID COUNT INCLUDES THE [facility] Last Admin: 11/05/16 18:08 Dose: 300 mg Lisinopril (Zestril) 20 mg PO DAILY COUNT INCLUDES THE [facility] Last Admin: 11/05/16 09:57 Dose: 20 mg Morphine Sulfate (Morphine) 4 mg IVP Q6 PRN PRN Reason: Pain, moderate (4-7) Last Admin: 11/06/16 02:52 Dose: 4 mg Darunavir [Prezista] 800 Mg (Home Med ) 800 mg PO DAILY COUNT INCLUDES THE [facility] Last Admin: 11/05/16 10:05 Dose: Not Given Non-Formulary Medication (Ramelteon) 8 mg PO HS PRN PRN Reason: Insomnia Pantoprazole Sodium (Protonix Ec Tab) 40 mg PO 0630 COUNT INCLUDES THE [facility] Last Admin: 11/06/16 05:42 Dose: 40 mg Raltegravir (Isentress) 400 mg PO BID COUNT INCLUDES THE [facility] Last Admin: 11/05/16 18:07 Dose: 400 mg Ritonavir (Norvir) 100 mg PO DAILY COUNT INCLUDES THE [facility] Last Admin: 11/05/16 09:56 Dose: 100 mg Sevelamer HCl (Renagel) 2,400 mg PO WM COUNT INCLUDES THE [facility] Last Admin: 11/05/16 19:09 Dose: Not Given Tenofovir Disoproxil Fumarate (Viread) 300 mg PO QWK COUNT INCLUDES THE [facility] Physical Exam - Constitutional Appears: Non-toxic, No Acute Distress - Head Exam Head Exam: NORMAL INSPECTION - ENT Exam ENT Exam: Mucous Membranes Moist - Neck Exam Neck exam: Negative for: Lymphadenopathy, Meningismus - Respiratory Exam Respiratory Exam: Decreased Breath Sounds, Rales (scattered) - Cardiovascular Exam Cardiovascular Exam: +S1, +S2 - GI/Abdominal Exam GI & Abdominal Exam: Soft. absent: Tenderness Results - Vital Signs Recent Vital Signs: Last Vital Signs Temp 103.1 F H 11/06/16 05:12 Pulse 101 H 11/06/16 02:00 Resp 22 11/06/16 00:00 BP 139/91 H 11/06/16 00:00 Pulse Ox 96 11/06/16 00:00 - Labs Result Diagrams: 11/06/16 06:30 11/06/16 06:30 Labs: Laboratory Results - last 24 hr 11/05/16 11/05/16 08:50 08:55 Phosphorus 8.3 H Lactate Dehydrogenase 342 Total Creatine Kinase 65 Troponin I 0.06 Assessment & Plan - Assessment and Plan (Free Text) Plan: Assessment Sepsis secondary to left sided healthcare-associated pneumonia with possible gram positive cocci and/or gram negative bacilli, R/O pneumocystis pneumonia HIV, diagnosed years ago, does not recall most recent CD4 count (but states it is above 200) and also does not recall most recent virus load, currently on cART (with history of low CD4 count and was previously on prophylaxis) ESRD on HD S/P kidney transplant S/P cholecystectomy asthma HTN Plan Gave one dose of IV Vancomycin and started Merrem and Zithromax pending blood, sputum cx, PCT, urine Legionella Ag; check rapid Influenza test as well Will continue Abacavir, adjust Tenofovir to once weekly dosing, continue boosted Darunavir and Raltegravir Follow up CD4 count and HIV virus load Will monitor clinical response and trend fever curve
--- NOTE | 2016-11-06 13:03 | CP.PCM.PN ---
Subjective - Date & Time of Evaluation Date of Evaluation: 11/06/16 Time of Evaluation: 07:30 - Subjective Subjective: PGY-1 Medicine Progress Note for Dr. Vera Patient seen and eexamined at bedside. Overnight, patient spiked a fever of 103.1. CT neck and chest revealed PAMELA pneumonia. Patient was started on IV antibiotics. Today, she stated that her pain is the same and she doesnt feel much better than yesterday. She reported that R sided chest/abdominal/flank pain is still present. No BM since admission. Patient tolerating diet. Admitted to cough. Denied congestion, chills, palpitations, n/v/d, incontinence, numbness /tingling. Objective - Vital Signs/Intake and Output Vital Signs (last 24 hours): Temp Pulse Resp BP Pulse Ox 99.2 F 90 20 134/78 97 11/06/16 12:00 11/06/16 12:00 11/06/16 12:00 11/06/16 12:00 11/06/16 06:00 Intake and Output: 11/06/16 11/06/16 06:59 18:59 Intake Total 540 Output Total 0 Balance 540 - Medications Medications: Current Medications Abacavir Sulfate (Ziagen) 300 mg PO BID ON LICENSE OF [facility] Last Admin: 11/06/16 09:41 Dose: 300 mg Acetaminophen (Tylenol 325mg Tab) 650 mg PO Q6H PRN PRN Reason: Fever >100.4 F Last Admin: 11/06/16 05:12 Dose: 650 mg Atovaquone (Mepron) 750 mg PO BID [facility] Azithromycin (Zithromax) 500 mg PO DAILY ON LICENSE OF [facility] PRN Reason: Protocol Last Admin: 11/06/16 09:40 Dose: 500 mg Cinacalcet (Sensipar) 60 mg PO HS ON LICENSE OF [facility] Last Admin: 11/05/16 21:39 Dose: 60 mg Clonidine HCl (Catapres) 0.3 mg PO BID ON LICENSE OF [facility] Last Admin: 11/06/16 09:42 Dose: 0.3 mg Diphenhydramine HCl (Benadryl) 50 mg IVP Q4H PRN PRN Reason: Allergy symptoms Last Admin: 11/06/16 08:37 Dose: 50 mg Docusate Sodium (Colace) 100 mg PO BID ON LICENSE OF [facility] Hydralazine HCl (Apresoline) 25 mg PO TID ON LICENSE OF [facility] Last Admin: 11/06/16 09:42 Dose: 25 mg Labetalol HCl (Trandate) 300 mg PO BID ON LICENSE OF [facility] Last Admin: 11/06/16 09:43 Dose: 300 mg Lisinopril (Zestril) 20 mg PO DAILY ON LICENSE OF [facility] Last Admin: 11/06/16 09:41 Dose: 20 mg Morphine Sulfate (Morphine) 4 mg IVP Q6 PRN PRN Reason: Pain, moderate (4-7) Last Admin: 11/06/16 11:11 Dose: 4 mg Darunavir [Prezista] 800 Mg (Home Med ) 800 mg PO DAILY ON LICENSE OF [facility] Last Admin: 11/06/16 09:36 Dose: Not Given Ramelteon 8 Mg (Home (Med)) 8 mg PO HS PRN PRN Reason: Insomnia Pantoprazole Sodium (Protonix Ec Tab) 40 mg PO 0630 ON LICENSE OF [facility] Last Admin: 11/06/16 05:42 Dose: 40 mg Polyethylene Glycol (Miralax) 17 gm PO DAILY ON LICENSE OF [facility] Raltegravir (Isentress) 400 mg PO BID ON LICENSE OF [facility] Last Admin: 11/06/16 09:40 Dose: 400 mg Ritonavir (Norvir) 100 mg PO DAILY ON LICENSE OF [facility] Last Admin: 11/06/16 09:40 Dose: 100 mg Sevelamer HCl (Renagel) 2,400 mg PO WM ON LICENSE OF [facility] Last Admin: 11/06/16 11:52 Dose: 2,400 mg Tenofovir Disoproxil Fumarate (Viread) 300 mg PO QWK ON LICENSE OF [facility] Last Admin: 11/06/16 09:41 Dose: 300 mg - Labs Labs: 11/06/16 06:30 11/06/16 06:30 - Constitutional Appears: No Acute Distress - Head Exam Head Exam: ATRAUMATIC, NORMOCEPHALIC - Eye Exam Eye Exam: EOMI, Normal appearance Pupil Exam: PERRL - ENT Exam ENT Exam: Mucous Membranes Dry - Respiratory Exam Respiratory Exam: Decreased Breath Sounds (PAMELA area), NORMAL BREATHING PATTERN. absent: Accessory Muscle Use, Respiratory Distress - Cardiovascular Exam Cardiovascular Exam: REGULAR RHYTHM, +S1, +S2 - GI/Abdominal Exam GI & Abdominal Exam: Soft, Tenderness (RUQ), Normal Bowel Sounds - Extremities Exam Extremities Exam: Normal Capillary Refill Additional comments: LUE AVF - Back Exam Back Exam: CVA tenderness (R). absent: CVA tenderness (L) - Neurological Exam Neurological Exam: Alert, Awake, CN II-XII Intact, Oriented x3 - Psychiatric Exam Psychiatric exam: Normal Affect, Normal Mood - Skin Skin Exam: Dry, Intact, Normal Color, Warm Assessment and Plan - Assessment and Plan (Free Text) Plan: 25 F with past medical hx of HTN, HIV, ESRD on dialysis admitted for chest pain and abdominal pain, found to have pneumonia 1. Chest pain Cardio consult, Dr. Larios, help appreciated cardiac enzymes negative x [address] abdomen/pelvis with IV/PO contrast: sever atrophy of kidneys. No acute intra- abdominal findings. Ground-glass interstitial denisties of both lung bases. CT neck/chest: bilateral interstitial infiltrates. Focal alveolar infiltrate in the PAMELA consistent with Pneumonia. Extensive supraclavicular lymphadenopathy. Mediastinal adenopathy (see full report). CXR: Vague bilateral mostly peripheral airspace opacities - infiltrates with or without underlying pleural parenchymal pathology arms some thoughts. Recommend CT neck/chest (see full report). Morphine 4 mg IVP Q4H PRN 2. Pneumonia sputum culture procalcitonin Legionella Ag influenza a&b negative Atovaquone 750 mg PO BID Azithromycin 500 mg IVPB daily Vancomycin 1 gm IVPB 3. HTN Hydralazine 25 mg PO TID Lisinopril 20 mg PO daily Clonidine 0.3 mg PO BID Labetalol 300 mg PO BID 4. HIV Abacavir 300 mg PO BID Raltegravir 400 mg PO BID Ritonavir 100 mg PO daily Tenofovir 300 mg PO daily HIV-1 RNA Fungitell(1-3) CD3/CD4/CD8/CD19 c diff blood/stool/sputum culture ID consult, Dr. Vallecillo, help appreciated Hep panel negative 5. ESRD on HD HD MWF Sevelamer 2400 mg PO WM Cinacalet 60 mg PO HS Nephro consult, Dr. Byrd, help appreciated Renal dialysis diet 6. Constipation Miralax 17 gm PO daily Colace 100 mg PO BID 7. Prophylactic Measures SCDs protonix 40 mg PO daily
[2016-11-06] MEDS ORDERED: POLYETHYLENE GLYCOL 3350 17 GM/Dose PACKET PO SCH (13:15)
--- NOTE | 2016-11-06 14:03 | PN ---
DATE: 11/06/2016 The patient denies shortness of breath. She underwent hemodialysis yesterday. She is due for anothe r hemodialysis tomorrow. She is still experiencing right-sided sharp chest pain. PHYSICAL EXAMINATION: VITAL SIGNS: Blood pressure 134/78, heart rate 90, temperature 99.2, respirations 20. HEENT: Facial edema. NECK: No JVD. CHEST: Diminished breath sounds over the bases. HEART: S1, S2 regular. EXTREMITIES: Trace edema. LABORATORIES: Today's hemoglobin and hematocrit 10.6 and 32.7, white count and platelet count are wi thin normal limits. Today's potassium is 6.2. BUN and creatinine are 52 and 10.1. ASSESSMENT: 1. Right-sided chest pain. Cardiac enzymes are not in the elevated range. 2. Hyperkalemia. 3. Human immunodeficiency virus positive. 4. Consider bilateral pneumonia. RECOMMENDATIONS: Continue current hydralazine, clonidine, lisinopril and labetalol. Continue oral Z ithromax. I suggested the patient may need hemodialysis earlier than usual because of the hyperkalem ia. However, the decision will be left completely up to the art psychotherapist or therapist. Yovani Larios MD cc: [id number] TT: 11/06/2016 14:02:30 Confirmation # [id number] Dictation # [id number] mn
--- NOTE | 2016-11-06 17:40 | CARD ---
APPROVED REPORT EXAM: Two-dimensional and M-mode echocardiogram with Doppler and color Doppler. INDICATION Chest Pain 2D DIMENSIONS Left Atrium (2D)4.7 (1.6-4.0cm)IVSd1.5 (0.7-1.1cm) LVDd4.3 (3.9-5.9cm)PWd1.4 (0.7-1.1cm) LVDs2.9 (2.5-4.0cm)FS (%) 31.9 % LVEF (%)60.2 (>50%) M-Mode DIMENSIONS Aortic Root2.40 (2.2-3.7cm)Aortic Cusp Exc.1.60 (1.5-2.0cm) Aortic Valve AoV Peak Vvjkhrhz980.0cm/Julee Peak GR.19mmHg Mitral Valve MV E Cosmhpqw598.0cm/sMV A Nupiilxu60.0cm/sE/A ratio1.3 TDI E/Lateral E'0.0E/Medial E'0.0 Tricuspid Valve TR Peak Oaxbcert595do/sRAP [id number] Peak Gr.40mmHg [id number] LEFT VENTRICLE The left ventricle is normal size. There is moderate concentric left ventricular hypertrophy. The left ventricular function is normal. The left ventricular ejection fraction is within the normal range. There is normal LV segmental wall motion. Transmitral Doppler flow pattern is Grade II-pseudonormal filling dynamics. RIGHT VENTRICLE The right ventricle is normal size. There is normal right ventricular wall thickness. RV Systolic function is mildly to moderately reduced. ATRIA The left atrium is mildly dilated. The right atrium is mildly dilated. AORTIC VALVE The aortic valve is mildly thickened. MITRAL VALVE The mitral valve is moderately thickened. TRICUSPID VALVE There is moderate tricuspid regurgitation. There is moderate pulmonary hypertension. PULMONIC VALVE There is trace pulmonic valvular regurgitation. GREAT VESSELS The aortic root displays mild to moderate sclerocalcific changes of the aortic root. PERICARDIAL EFFUSION There is no pericardial effusion. <Conclusion> The left ventricle is normal size. There is moderate concentric left ventricular hypertrophy. The left ventricular function is normal. The left ventricular ejection fraction is within the normal range. There is normal LV segmental wall motion. There is moderate pulmonary hypertension.
--- NOTE | 2016-11-06 18:29 | CARD ---
APPROVED REPORT EKG Measurement Heart [id number] <Conclusion> Normal sinus rhythm Nonspecific T wave abnormality Prolonged QT Abnormal ECG
[2016-11-06] MEDS: Atovaquone 750 mg/5 ml Susp UD PO SCH (19:56)
[2016-11-07] MEDS: Morphine 4 mg/ml ISec IVP PRN ×4 (03:20→21:33)
[2016-11-07] MEDS: DiphenhydrAMINE 50 mg/ml Inj IVP PRN ×3 (04:40→17:58)
[2016-11-07] MEDS: Pantoprazole 40 mg EC Tab PO SCH (05:56)
[2016-11-07 08:11] LABS: % CD16+CD56+(NK CELL) 8 Percent (4-25); % CD19 (B CELL) 27 Percent (6-29); % CD3 (MATURE T CELL) 62 Percent (57-85); ABSOLUTE CD16+CD56+CELLS 107 Cells/mcL (70-760)
--- NOTE | 2016-11-07 08:19 | PN ---
DATE: 11/06/2016 A 25-year-old female with a past medical history of hypertension, HIV on HAART, ESRD on hemodialysis Thursday, Thursday and Thursday, status post a failed kidney transplant and asthma, admitted with sean suero. The patient is still reporting chest pain, denies shortness of breath, not having any bowel mov ements since presentation. PHYSICAL EXAMINATION: VITAL SIGNS: This morning: Blood pressure 130/85, heart rate 93, respirations 20, temperature 99.2; the patient with temperature of 103.1 degrees this morning. GENERAL: The patient is in no apparent distress, lying comfortably. HEENT: Moist mucous membranes. CHEST: Clear to auscultation bilaterally. No rales, no rhonchi, no wheezes. HEART: S1, S2 positive, no murmurs. ABDOMEN: Soft, nondistended, nontender. EXTREMITIES: Minimal leg edema. LABORATORY DATA: WBC 6.1, hemoglobin 10.6, hematocrit 32.7, platelets 132. Chemistry: Sodium 137, potassium 6.2, chloride 95, bicarbonate 26, BUN 52, creatinine 10.1, glucose 91, calcium 7.5. Phosph orus from yesterday was 8.3. Procalcitonin 1.13. No blood cultures are back date. ASSESSMENT: End-stage renal disease on hemodialysis. The patient yesterday with 2-1/2 hour session came off early after having cramps. We were going for a 2 liter UF goal. Today the patient has mild hyperkalemia, dialyzing today for 1-1/2 hours on a 1 K bath with 500 mL, UF goal over 1-1/2 hours. The patient is to have a full dialysis session tomorrow. Will aim for a UF goal of 1.5 liters. Pneu monia: ID consulted. The patient started on vancomycin. Continue on azithromycin. Gram-negative c overage added with meropenem. Will need to redose antibiotics tomorrow after dialysis. Hypertension : Controlled on labetalol 300 mg b.i.d., hydralazine 25 mg t.i.d., clonidine 0.3 mg b.i.d. and lisin opril 20 mg daily. Agree with holding lisinopril for now in the situation of sepsis. Can also decre ase clonidine to 0.1 mg b.i.d. and adjust as needed. Human immunodeficiency virus: On home meds. R altegravir should be redosed after dialysis tomorrow. Hyperphosphatemia: Markedly uncontrolled. Wi ll continue with sevelamer 3 tabs t.i.d. with meals. Hieu Ellington MD cc: [id number] TT: 11/06/2016 21:52:16 Confirmation # [id number] Dictation # [id number] dn
[2016-11-07 08:33] LABS: ADD MANUAL DIFF? NO
[2016-11-07 08:36] LABS: BASO # 0.01 K/mm3 (0.0-2.0); BASO % 0.2 % (0.0-3.0); EOS # 0.2 (0.0-0.7); EOS % 4.3 % (1.5-5.0); GRAN # 2.58 (1.4-6.5); GRAN % 53.1 % (50.0-68.0); HEMATOCRIT 30.1 % (36.0-48.0); LYMPH # 1.4 (1.2-3.4); LYMPH % 28.4 % (22.0-35.0); MEAN CELL VOLUME 88.5 fL (80.0-105.0); MEAN CORPUSCULAR HEMOGLOBIN 28.5 pg (25.0-35.0); MEAN CORPUSCULAR HGB CONC 32.2 g/dl (31.0-37.0); MEAN PLATELET VOLUME 9.5 fl (7.0-11.0); MONO # 0.7 (0.1-0.6); PLATELET COUNT 117 10^3/uL (120.0-450.0); RED CELL DISTRIBUTION WIDTH 16.8 % (11.5-14.5); WHITE BLOOD COUNT 4.9 10^3/ul (4.5-11.0)
[2016-11-07 08:47] LABS: ALB/GLOB RATIO 1.1 (1.1-1.8); BILIRUBIN,TOTAL 0.7 mg/dL (0.2-1.3); CALCIUM 7.6 mg/dL (8.4-10.5); MAGNESIUM 2.1 mg/dL (1.7-2.2); PHOSPHOROUS 7.1 mg/dL (2.5-4.5); POTASSIUM 4.9 mmol/L (3.6-5.0); TOTAL PROTEIN 7.4 g/dL (5.8-8.3)
--- NOTE | 2016-11-07 08:57 | CP.PCM.PN ---
Subjective - Date & Time of Evaluation Date of Evaluation: 11/07/16 Time of Evaluation: 07:45 - Subjective Subjective: PGY-1 Medicine Progress Note for Dr. Vera Patient seen and examined at bedside. No acute event overnight. Patient stated that her pain is the same and isn't getting better. She reported that the pain still coarses the R side of chest/abdominal/flank pain. No BM since admission. Patient tolerating diet. Admitted to cough. Denied congestion, chills, palpitations, n/v/d, incontinence, numbness/tingling. Patient placed on airborne precautions and quantiferon was ordered due to HIV status. Last PPD was over 1 year ago. Objective - Vital Signs/Intake and Output Vital Signs (last 24 hours): Temp Pulse Resp BP Pulse Ox 97.9 F 90 22 132/83 97 11/07/16 05:36 11/07/16 05:36 11/07/16 05:36 11/07/16 05:36 11/07/16 05:36 Intake and Output: 11/07/16 11/07/16 06:59 18:59 Intake Total 600 Output Total 0 Balance 600 - Medications Medications: Current Medications Abacavir Sulfate (Ziagen) 300 mg PO BID [facility] Last Admin: 11/06/16 19:59 Dose: 300 mg Acetaminophen (Tylenol 325mg Tab) 650 mg PO Q6H PRN PRN Reason: Fever >100.4 F Last Admin: 11/06/16 05:12 Dose: 650 mg Atovaquone (Mepron) 750 mg PO BID [facility] Last Admin: 11/06/16 19:56 Dose: 750 mg Azithromycin (Zithromax) 500 mg PO DAILY [facility] PRN Reason: Protocol Last Admin: 11/06/16 09:40 Dose: 500 mg Cinacalcet (Sensipar) 60 mg PO HS [facility] Last Admin: 11/06/16 21:59 Dose: 60 mg Clonidine HCl (Catapres) 0.3 mg PO BID [facility] Last Admin: 11/06/16 20:00 Dose: 0.3 mg Clonidine HCl (Catapres) 0.2 mg PO BID [facility] Diphenhydramine HCl (Benadryl) 50 mg IVP Q4H PRN PRN Reason: Allergy symptoms Last Admin: 11/07/16 04:40 Dose: 50 mg Docusate Sodium (Colace) 100 mg PO BID [facility] Last Admin: 11/06/16 19:57 Dose: 100 mg Hydralazine HCl (Apresoline) 25 mg PO TID [facility] Last Admin: 11/06/16 19:59 Dose: 25 mg Labetalol HCl (Trandate) 300 mg PO BID [facility] Last Admin: 11/06/16 19:58 Dose: 300 mg Morphine Sulfate (Morphine) 4 mg IVP Q6 PRN PRN Reason: Pain, moderate (4-7) Last Admin: 11/07/16 03:20 Dose: 4 mg Darunavir [Prezista] 800 Mg (Home Med ) 800 mg PO DAILY [facility] Last Admin: 11/06/16 09:36 Dose: Not Given Ramelteon 8 Mg (Home (Med)) 8 mg PO HS PRN PRN Reason: Insomnia Pantoprazole Sodium (Protonix Ec Tab) 40 mg PO 0630 [facility] Last Admin: 11/07/16 05:56 Dose: 40 mg Polyethylene Glycol (Miralax) 17 gm PO DAILY [facility] Last Admin: 11/06/16 14:44 Dose: 17 gm Raltegravir (Isentress) 400 mg PO BID [facility] Last Admin: 11/06/16 20:00 Dose: 400 mg Ritonavir (Norvir) 100 mg PO DAILY [facility] Last Admin: 11/06/16 09:40 Dose: 100 mg Sevelamer HCl (Renagel) 2,400 mg PO WM [facility] Last Admin: 11/07/16 08:21 Dose: 2,400 mg Tenofovir Disoproxil Fumarate (Viread) 300 mg PO QWK [facility] Last Admin: 11/06/16 09:41 Dose: 300 mg - Labs Labs: 11/07/16 08:15 11/07/16 08:15 - Constitutional Appears: No Acute Distress - Head Exam Head Exam: ATRAUMATIC, NORMOCEPHALIC - Eye Exam Eye Exam: EOMI, Normal appearance Pupil Exam: PERRL - ENT Exam ENT Exam: Mucous Membranes Dry - Neck Exam Neck Exam: Normal Inspection - Respiratory Exam Respiratory Exam: Chest Wall Tenderness, Decreased Breath Sounds (PAMELA), NORMAL BREATHING PATTERN. absent: Accessory Muscle Use, Respiratory Distress - Cardiovascular Exam Cardiovascular Exam: REGULAR RHYTHM, +S1, +S2 - GI/Abdominal Exam GI & Abdominal Exam: Soft, Tenderness (R sided), Normal Bowel Sounds - Extremities Exam Extremities Exam: Normal Capillary Refill Additional comments: LUE AVF - Back Exam Back Exam: CVA tenderness (R). absent: CVA tenderness (L) - Neurological Exam Neurological Exam: Alert, Awake, CN II-XII Intact, Normal Gait, Oriented x3 - Psychiatric Exam Psychiatric exam: Normal Affect, Normal Mood - Skin Skin Exam: Dry, Intact, Normal Color, Warm Assessment and Plan - Assessment and Plan (Free Text) Plan: 25 F with past medical hx of HTN, HIV, ESRD on dialysis admitted for chest pain and abdominal pain, found to have pneumonia 1. Chest pain Cardio consult, Dr. Larios, help appreciated cardiac enzymes negative x [address] abdomen/pelvis with IV/PO contrast: sever atrophy of kidneys. No acute intra- abdominal findings. Ground-glass interstitial denisties of both lung bases. CT neck/chest: bilateral interstitial infiltrates. Focal alveolar infiltrate in the PAMELA consistent with Pneumonia. Extensive supraclavicular lymphadenopathy. Mediastinal adenopathy (see full report). CXR: Vague bilateral mostly peripheral airspace opacities - infiltrates with or without underlying pleural parenchymal pathology arms some thoughts. Recommend CT neck/chest (see full report). Morphine 4 mg IVP Q4H PRN 2. Pneumonia sputum culture AFB sputum culture Airborne isolation Quantiferon Gold procalcitonin 1.13 Legionella Ag influenza a&b negative Atovaquone 750 mg PO BID Azithromycin 500 mg IVPB daily Vancomycin 1 gm IVPB 3. HTN Hydralazine 25 mg PO TID Lisinopril 20 mg PO daily Clonidine 0.3 mg PO BID Labetalol 300 mg PO BID 4. HIV Abacavir 300 mg PO BID Raltegravir 400 mg PO BID Ritonavir 100 mg PO daily Tenofovir 300 mg PO daily HIV-1 RNA Fungitell(1-3) CD4 328 c diff blood/stool/sputum culture ID consult, Dr. Vallecillo, help appreciated Hep panel negative 5. ESRD on HD HD MWF Sevelamer 2400 mg PO WM Cinacalet 60 mg PO HS Nephro consult, Dr. Byrd, help appreciated Renal dialysis diet 6. Constipation Miralax 17 gm PO BID Colace 100 mg PO BID 7. Prophylactic Measures SCDs protonix 40 mg PO daily
[2016-11-07] MEDS: Atovaquone 750 mg/5 ml Susp UD PO SCH ×2 (10:00→17:56)
[2016-11-07] MEDS: DARUNAVIR 800 MG PO SCH (11:21)
--- NOTE | 2016-11-07 13:09 | CP.PCM.PN ---
Subjective - Date & Time of Evaluation Date of Evaluation: 11/07/16 Time of Evaluation: 09:20 - Subjective Subjective: Comfortable in bed, less chest pain, no shortness of breath, minimal cough, non- productive, no hemoptysis, no fevers overnight. Objective - Vital Signs/Intake and Output Vital Signs (last 24 hours): Temp Pulse Resp BP Pulse Ox 97.9 F 90 22 132/83 97 11/07/16 05:36 11/07/16 05:36 11/07/16 05:36 11/07/16 05:36 11/07/16 05:36 Intake and Output: 11/07/16 11/07/16 06:59 18:59 Intake Total 600 Output Total 0 Balance 600 - Medications Medications: Current Medications Abacavir Sulfate (Ziagen) 300 mg PO BID [facility] Last Admin: 11/06/16 19:59 Dose: 300 mg Acetaminophen (Tylenol 325mg Tab) 650 mg PO Q6H PRN PRN Reason: Fever >100.4 F Last Admin: 11/06/16 05:12 Dose: 650 mg Atovaquone (Mepron) 750 mg PO BID [facility] Last Admin: 11/06/16 19:56 Dose: 750 mg Azithromycin (Zithromax) 500 mg PO DAILY [facility] PRN Reason: Protocol Last Admin: 11/06/16 09:40 Dose: 500 mg Cinacalcet (Sensipar) 60 mg PO HS [facility] Last Admin: 11/06/16 21:59 Dose: 60 mg Clonidine HCl (Catapres) 0.3 mg PO BID [facility] Last Admin: 11/06/16 20:00 Dose: 0.3 mg Clonidine HCl (Catapres) 0.2 mg PO BID [facility] Diphenhydramine HCl (Benadryl) 50 mg IVP Q4H PRN PRN Reason: Allergy symptoms Last Admin: 11/07/16 04:40 Dose: 50 mg Docusate Sodium (Colace) 100 mg PO BID [facility] Last Admin: 11/06/16 19:57 Dose: 100 mg Hydralazine HCl (Apresoline) 25 mg PO TID [facility] Last Admin: 11/06/16 19:59 Dose: 25 mg Labetalol HCl (Trandate) 300 mg PO BID [facility] Last Admin: 11/06/16 19:58 Dose: 300 mg Morphine Sulfate (Morphine) 4 mg IVP Q6 PRN PRN Reason: Pain, moderate (4-7) Last Admin: 11/07/16 03:20 Dose: 4 mg Darunavir [Prezista] 800 Mg (Home Med ) 800 mg PO DAILY [facility] Last Admin: 11/06/16 09:36 Dose: Not Given Ramelteon 8 Mg (Home (Med)) 8 mg PO HS PRN PRN Reason: Insomnia Pantoprazole Sodium (Protonix Ec Tab) 40 mg PO 0630 [facility] Last Admin: 11/07/16 05:56 Dose: 40 mg Polyethylene Glycol (Miralax) 17 gm PO DAILY [facility] Last Admin: 11/06/16 14:44 Dose: 17 gm Raltegravir (Isentress) 400 mg PO BID [facility] Last Admin: 11/06/16 20:00 Dose: 400 mg Ritonavir (Norvir) 100 mg PO DAILY [facility] Last Admin: 11/06/16 09:40 Dose: 100 mg Sevelamer HCl (Renagel) 2,400 mg PO WM [facility] Last Admin: 11/07/16 08:21 Dose: 2,400 mg Tenofovir Disoproxil Fumarate (Viread) 300 mg PO QWK [facility] Last Admin: 11/06/16 09:41 Dose: 300 mg - Constitutional Appears: Non-toxic, No Acute Distress - Head Exam Head Exam: NORMAL INSPECTION - ENT Exam ENT Exam: Mucous Membranes Moist - Neck Exam Neck Exam: absent: Lymphadenopathy, Meningismus - Respiratory Exam Respiratory Exam: Decreased Breath Sounds - Cardiovascular Exam Cardiovascular Exam: +S1, +S2 - GI/Abdominal Exam GI & Abdominal Exam: Soft. absent: Tenderness Assessment and Plan - Assessment and Plan (Free Text) Plan: Assessment Sepsis secondary to left sided healthcare-associated pneumonia with possible gram positive cocci and/or gram negative bacilli, R/O pneumocystis pneumonia; her presentation is not typical of TB and our suspicion is still low, but need to rule it out (her last PPD in November 2015 was negative and has been negative since 2012 when it was first checked in HIV clinic in [place], no cavitary lesion, although there is mediastinal lymphadenopathy) HIV, diagnosed years ago, last CD4 count as an outpatient was 384 in 2015, most recent virus load 2015 was undetectable, currently on cART (with history of low CD4 count and was previously on prophylaxis) ESRD on HD S/P kidney transplant S/P cholecystectomy asthma HTN Plan continue Merrem and Zithromax pending final blood, sputum cx; PCT is elevated although she has chronic renal failure; follow up urine Legionella Ag; rapid Influenza test is negative; started patient also on Mepron pending beta glucan test Discussed with Dr. Vera - recommend Pulmonary evaluation and check Quantiferon TB test, sputum AFB Will continue Abacavir, adjust Tenofovir to once weekly dosing, continue boosted Darunavir and Raltegravir Follow up HIV virus load; CD4 count is 328 during this admission Will monitor clinical response and trend fever curve
--- NOTE | 2016-11-07 16:39 | PN ---
DATE: 11/07/2016 SUBJECTIVE: The patient denies shortness of breath. She is experiencing sharp right-sided chest kalia n. PHYSICAL EXAMINATION: VITAL SIGNS: Blood pressure 132/83, heart rate 90, temperature 97.9, respirations 22. HEENT: Facial edema. NECK: No JVD. CHEST: Clear. HEART: S1, S2 regular. EXTREMITIES: Trace edema. LABORATORIES: Hemoglobin and hematocrit 9.7 and 30.1, white count 4.9, platelet count 117,000. Toda y's potassium is 4.9, BUN and creatinine 41 and 9.2. Calcium is below normal at 7.6. Echocardiograp hic study revealed moderate concentric LVH with normal systolic function. Mildly to moderately reduc ed left ventricular systolic function. Moderate pulmonary hypertension. Neck and chest CT scan reve aled bilateral interstitial infiltrate. Focal alveolar infiltrate in the left upper lobe consistent with pneumonia. Extensive supraclavicular adenopathy. ASSESSMENT: 1. Atypical chest pain. 2. Left upper lobe pneumonia. 3. End-stage renal disease on hemodialysis. 4. Pleuritic right-sided chest pain. 5. Hypertension. RECOMMENDATIONS: Continue hydralazine 25 mg t.i.d., clonidine 0.2 mg twice a day, Renagel 2400 mg wi meals, labetalol 300 mg twice a day. No further cardiac workup is indicated. Discontinue telemet ry. Yovani Larios MD cc: [id number] TT: 11/07/2016 16:38:57 Confirmation # [id number] Dictation # [id number] tn
[2016-11-07] MEDS: POLYETHYLENE GLYCOL 3350 17 GM/Dose PACKET PO SCH (17:56)
--- NOTE | 2016-11-07 19:46 | PN ---
DATE: 11/07/2016 SUBJECTIVE: The patient is a 25-year-old female with past medical history of hypertension, HIV, on H AART, ESRD on hemodialysis Thursday, Thursday and Thursday, status post failed kidney transplant, asthma , admitted with healthcare-associated pneumonia. The patient denies any shortness of breath and stil l reporting that she has not had any bowel movement since presentation. PHYSICAL EXAMINATION: VITAL SIGNS: This morning, blood pressure 132/83, heart rate of 90, respirations 22, temperature 97. 9, satting 97% on room air. GENERAL: No apparent distress, able to converse coherently, not lethargic. HEENT: Moist mucous membranes. CHEST: Clear to auscultation bilaterally. HEART: S1, S2 positive, no murmurs, no gallops. ABDOMEN: Soft, mild right-sided tenderness. EXTREMITIES: No leg edema. Left upper arm AV fistula with good thrill and bruit. LABORATORY DATA: White count 4.9, hemoglobin 9.7, hematocrit 30.1, platelet count 117. Chemistry: Sodium 136, potassium 4.9, chloride 94, bicarbonate 28, BUN 41, creatinine 9.2, glucose 89, calcium 7 .6, albumin 3.9. Procalcitonin from yesterday 1.13. CD4 count from yesterday 328. ASSESSMENT: 1. End-stage renal disease, on hemodialysis, hyperkalemia, resolved after extra dialysis treatment y esterday in the setting of shortened session the day before. The patient seen on dialysis today rece iving a full 3-1/2 hour session, UF goal of 1.5 liters. 2. Hypertension. Blood pressure controlled. Clonidine decreased yesterday to 0.2 mg b.i.d. current ly with lisinopril on hold. 3. Pneumonia/sepsis. Being treated for healthcare-associated pneumonia. Blood cultures have been n egative to date. Afebrile for over 24 hours now. Started on gram-negative coverage yesterday with m eropenem, correctly dosed for end-stage renal disease, on dialysis at 500 mg q. 12 hours, also on carloz thromycin. 4. Chronic kidney disease, mineral bone disease, marked hyperphosphatemia, on sevelamer 3 tablets th meals, continue. On cinacalcet 60 mg nightly, continue. 5. Anemia. Hemoglobin below goal, down trending since admission. Should check iron stores. We laurel l give dose of Aranesp 25 mcg. 6. Constipation. Avoid phosphate-containing Fleet's enema as inpatient with hyperphosphatemia. Can give mineral oil enema if needed instead. Hieu Ellington MD cc: [id number] TT: 11/07/2016 19:45:51 Confirmation # [id number] Dictation # [id number] bradley
[2016-11-07] MEDS: Meropenem 500 MG in Sodium Chloride 0.9% 100 ML IVPB SCH (21:25)
[2016-11-08] MEDS: Morphine 4 mg/ml ISec IVP PRN ×2 (03:14→09:51)
[2016-11-08] MEDS: DiphenhydrAMINE 50 mg/ml Inj IVP PRN (05:37)
[2016-11-08] MEDS: Pantoprazole 40 mg EC Tab PO SCH (05:37)
[2016-11-08] MEDS: Meropenem 500 MG in Sodium Chloride 0.9% 100 ML IVPB SCH (09:50)
[2016-11-08] MEDS: Atovaquone 750 mg/5 ml Susp UD PO SCH ×2 (09:51→18:00)
[2016-11-08] MEDS: POLYETHYLENE GLYCOL 3350 17 GM/Dose PACKET PO SCH ×3 (09:51→18:00)
[2016-11-08] MEDS: DARUNAVIR 800 MG PO SCH (09:53)
--- NOTE | 2016-11-08 15:05 | CP.PCM.PN ---
Subjective - Date & Time of Evaluation Date of Evaluation: 11/08/16 Time of Evaluation: 15:01 - Subjective Subjective: Patient has very poor veins and has a left arm alert. She needs IV access Objective - Vital Signs/Intake and Output Vital Signs (last 24 hours): Temp Pulse Resp BP Pulse Ox 99.5 F 87 20 160/88 H 97 11/08/16 07:30 11/08/16 07:30 11/08/16 07:30 11/08/16 13:52 11/08/16 07:30 Intake and Output: 11/08/16 11/08/16 06:59 18:59 Intake Total 360 240 Balance 360 240 - Medications Medications: Current Medications Abacavir Sulfate (Ziagen) 300 mg PO BID [facility] Last Admin: 11/08/16 09:51 Dose: 300 mg Acetaminophen (Tylenol 325mg Tab) 650 mg PO Q6H PRN PRN Reason: Fever >100.4 F Last Admin: 11/06/16 05:12 Dose: 650 mg Atovaquone (Mepron) 750 mg PO BID [facility] Last Admin: 11/08/16 09:51 Dose: 750 mg Azithromycin (Zithromax) 500 mg PO DAILY [facility] PRN Reason: Protocol Last Admin: 11/08/16 09:51 Dose: 500 mg Cinacalcet (Sensipar) 60 mg PO HS [facility] Last Admin: 11/07/16 21:25 Dose: 60 mg Clonidine HCl (Catapres) 0.2 mg PO BID [facility] Last Admin: 11/08/16 09:52 Dose: 0.2 mg Diphenhydramine HCl (Benadryl) 50 mg PO Q4H PRN PRN Reason: Allergy symptoms Docusate Sodium (Colace) 100 mg PO BID [facility] Last Admin: 11/08/16 09:52 Dose: 100 mg Hydralazine HCl (Apresoline) 25 mg PO TID [facility] Last Admin: 11/08/16 13:52 Dose: 25 mg Meropenem 500 mg/ Sodium (Chloride) 100 mls @ 100 mls/hr IVPB DAILY [facility] PRN Reason: Protocol Labetalol HCl (Trandate) 300 mg PO BID [facility] Last Admin: 11/08/16 10:04 Dose: Not Given Morphine Sulfate (Morphine) 4 mg SC Q4H PRN PRN Reason: Pain, moderate (4-7) Darunavir [Prezista] 800 Mg (Home Med ) 800 mg PO DAILY [facility] Last Admin: 11/08/16 09:53 Dose: Not Given Ramelteon 8 Mg (Home (Med)) 8 mg PO HS PRN PRN Reason: Insomnia Pantoprazole Sodium (Protonix Ec Tab) 40 mg PO 0630 [facility] Last Admin: 11/08/16 05:37 Dose: 40 mg Polyethylene Glycol (Miralax) 17 gm PO BID [facility] Last Admin: 11/08/16 13:43 Dose: Not Given Raltegravir (Isentress) 400 mg PO BID [facility] Last Admin: 11/08/16 09:51 Dose: 400 mg Ritonavir (Norvir) 100 mg PO DAILY [facility] Last Admin: 11/08/16 09:51 Dose: 100 mg Sevelamer HCl (Renagel) 2,400 mg PO WM [facility] Last Admin: 11/08/16 12:55 Dose: 2,400 mg Tenofovir Disoproxil Fumarate (Viread) 300 mg PO QWK [facility] Last Admin: 11/06/16 09:41 Dose: 300 mg - Labs Labs: 11/07/16 08:15 11/07/16 08:15 - Constitutional Appears: No Acute Distress Assessment and Plan - Assessment and Plan (Free Text) Assessment: Poor venous access Plan: Two attempts made to insert Hep lock, not successful due to poor veins. Patient refuses to let me try a line in her neck. PMD notified.
[2016-11-08] MEDS: Morphine 4 mg/ml ISec SC PRN ×2 (17:53→22:25)
--- NOTE | 2016-11-08 18:29 | CP.PCM.PN ---
Subjective - Date & Time of Evaluation Date of Evaluation: 11/08/16 Time of Evaluation: 12:25 - Subjective Subjective: Comfortable in bed, not in distress, afebrile. Less pain in the chest, less cough. Objective - Vital Signs/Intake and Output Vital Signs (last 24 hours): Temp Pulse Resp BP Pulse Ox 99.5 F 87 20 150/100 H 97 11/08/16 07:30 11/08/16 07:30 11/08/16 07:30 11/08/16 09:52 11/08/16 07:30 Intake and Output: 11/08/16 11/08/16 06:59 18:59 Intake Total 360 Balance 360 - Medications Medications: Current Medications Abacavir Sulfate (Ziagen) 300 mg PO BID [facility] Last Admin: 11/08/16 09:51 Dose: 300 mg Acetaminophen (Tylenol 325mg Tab) 650 mg PO Q6H PRN PRN Reason: Fever >100.4 F Last Admin: 11/06/16 05:12 Dose: 650 mg Atovaquone (Mepron) 750 mg PO BID [facility] Last Admin: 11/08/16 09:51 Dose: 750 mg Azithromycin (Zithromax) 500 mg PO DAILY [facility] PRN Reason: Protocol Last Admin: 11/08/16 09:51 Dose: 500 mg Cinacalcet (Sensipar) 60 mg PO HS [facility] Last Admin: 11/07/16 21:25 Dose: 60 mg Clonidine HCl (Catapres) 0.2 mg PO BID [facility] Last Admin: 11/08/16 09:52 Dose: 0.2 mg Diphenhydramine HCl (Benadryl) 50 mg IVP Q4H PRN PRN Reason: Allergy symptoms Last Admin: 11/08/16 05:37 Dose: 50 mg Docusate Sodium (Colace) 100 mg PO BID [facility] Last Admin: 11/08/16 09:52 Dose: 100 mg Hydralazine HCl (Apresoline) 25 mg PO TID [facility] Last Admin: 11/08/16 09:53 Dose: 25 mg Meropenem 500 mg/ Sodium (Chloride) 100 mls @ 100 mls/hr IVPB Q12 [facility] PRN Reason: Protocol Stop: 11/12/16 22:01 Last Admin: 11/08/16 09:50 Dose: 100 mls/hr Labetalol HCl (Trandate) 300 mg PO BID [facility] Last Admin: 11/08/16 10:04 Dose: Not Given Morphine Sulfate (Morphine) 4 mg IVP Q6 PRN PRN Reason: Pain, moderate (4-7) Last Admin: 11/08/16 09:51 Dose: 4 mg Darunavir [Prezista] 800 Mg (Home Med ) 800 mg PO DAILY [facility] Last Admin: 11/08/16 09:53 Dose: Not Given Ramelteon 8 Mg (Home (Med)) 8 mg PO HS PRN PRN Reason: Insomnia Pantoprazole Sodium (Protonix Ec Tab) 40 mg PO 0630 [facility] Last Admin: 11/08/16 05:37 Dose: 40 mg Polyethylene Glycol (Miralax) 17 gm PO BID [facility] Last Admin: 11/08/16 09:51 Dose: 17 gm Raltegravir (Isentress) 400 mg PO BID [facility] Last Admin: 11/08/16 09:51 Dose: 400 mg Ritonavir (Norvir) 100 mg PO DAILY [facility] Last Admin: 11/08/16 09:51 Dose: 100 mg Sevelamer HCl (Renagel) 2,400 mg PO WM [facility] Last Admin: 11/08/16 09:53 Dose: Not Given Tenofovir Disoproxil Fumarate (Viread) 300 mg PO QWK [facility] Last Admin: 11/06/16 09:41 Dose: 300 mg - Labs Labs: 11/07/16 08:15 11/07/16 08:15 - Constitutional Appears: Non-toxic, No Acute Distress - Head Exam Head Exam: NORMAL INSPECTION - Neck Exam Neck Exam: absent: Lymphadenopathy, Meningismus - Cardiovascular Exam Cardiovascular Exam: +S1, +S2 - GI/Abdominal Exam GI & Abdominal Exam: Soft. absent: Tenderness Assessment and Plan - Assessment and Plan (Free Text) Plan: Assessment Sepsis secondary to left sided healthcare-associated pneumonia with possible gram positive cocci and/or gram negative bacilli, R/O pneumocystis pneumonia; her presentation is not typical of TB and our suspicion is still low, but need to rule it out (her last PPD in November 2015 was negative and has been negative since 2012 when it was first checked in HIV clinic in [place], no cavitary lesion, although there is mediastinal lymphadenopathy); slowly improving HIV, diagnosed years ago, last CD4 count as an outpatient was 384 in 2015, most recent virus load 2015 was undetectable, currently on cART (with history of low CD4 count and was previously on prophylaxis) ESRD on HD S/P kidney transplant S/P cholecystectomy asthma HTN Plan continue Merrem and Zithromax pending final blood, sputum cx; PCT is elevated although she has chronic renal failure; follow up urine Legionella Ag; rapid Influenza test is negative; continue Mepron pending beta glucan test follow up Pulmonary evaluation and check Quantiferon TB test, sputum AFB Will continue Abacavir, adjust Tenofovir to once weekly dosing, continue boosted Darunavir and Raltegravir Follow up HIV virus load; CD4 count is 328 during this admission Will monitor clinical response and trend fever curve
--- NOTE | 2016-11-08 22:11 | CP.PCM.PN ---
Subjective - Date & Time of Evaluation Date of Evaluation: 11/08/16 Time of Evaluation: 10:45 - Subjective Subjective: Dr. Soria PGY 1 Hospitalist note Patient seen and evaluated at bedside. She has some right hand swelling and IV not functioning properly. She states it does not bother her and insists on medication be given through it. She denies any fever, chills, abdominal pain, but continue to have some SOB and right sided chest pain. Nursing currently trying to start a new IV. She is tolerating her diet well. Objective - Vital Signs/Intake and Output Vital Signs (last 24 hours): Temp Pulse Resp BP Pulse Ox 98.3 F 88 20 140/88 98 11/08/16 16:00 11/08/16 18:01 11/08/16 16:00 11/08/16 18:01 11/08/16 16:00 Intake and Output: 11/08/16 11/09/16 18:59 06:59 Intake Total 240 Balance 240 - Medications Medications: Current Medications Abacavir Sulfate (Ziagen) 300 mg PO BID [facility] Last Admin: 11/08/16 18:00 Dose: 300 mg Acetaminophen (Tylenol 325mg Tab) 650 mg PO Q6H PRN PRN Reason: Fever >100.4 F Last Admin: 11/06/16 05:12 Dose: 650 mg Atovaquone (Mepron) 750 mg PO BID [facility] Last Admin: 11/08/16 18:00 Dose: 750 mg Azithromycin (Zithromax) 500 mg PO DAILY [facility] PRN Reason: Protocol Last Admin: 11/08/16 09:51 Dose: 500 mg Cinacalcet (Sensipar) 60 mg PO HS [facility] Last Admin: 11/07/16 21:25 Dose: 60 mg Clonidine HCl (Catapres) 0.2 mg PO BID [facility] Last Admin: 11/08/16 18:01 Dose: 0.2 mg Diphenhydramine HCl (Benadryl) 50 mg PO Q4H PRN PRN Reason: Allergy symptoms Last Admin: 11/08/16 18:01 Dose: 50 mg Docusate Sodium (Colace) 100 mg PO BID [facility] Last Admin: 11/08/16 18:00 Dose: 100 mg Hydralazine HCl (Apresoline) 25 mg PO TID [facility] Last Admin: 11/08/16 18:00 Dose: 25 mg Meropenem 500 mg/ Sodium (Chloride) 100 mls @ 100 mls/hr IVPB DAILY [facility] PRN Reason: Protocol Labetalol HCl (Trandate) 300 mg PO BID [facility] Last Admin: 11/08/16 18:01 Dose: 300 mg Morphine Sulfate (Morphine) 4 mg SC Q4H PRN PRN Reason: Pain, moderate (4-7) Last Admin: 11/08/16 17:53 Dose: 4 mg Darunavir [Prezista] 800 Mg (Home Med ) 800 mg PO DAILY [facility] Last Admin: 11/08/16 09:53 Dose: Not Given Ramelteon 8 Mg (Home (Med)) 8 mg PO HS PRN PRN Reason: Insomnia Pantoprazole Sodium (Protonix Ec Tab) 40 mg PO 0630 [facility] Last Admin: 11/08/16 05:37 Dose: 40 mg Polyethylene Glycol (Miralax) 17 gm PO BID [facility] Last Admin: 11/08/16 18:00 Dose: 17 gm Raltegravir (Isentress) 400 mg PO BID [facility] Last Admin: 11/08/16 18:01 Dose: 400 mg Ritonavir (Norvir) 100 mg PO DAILY [facility] Last Admin: 11/08/16 09:51 Dose: 100 mg Sevelamer HCl (Renagel) 2,400 mg PO WM [facility] Last Admin: 11/08/16 16:16 Dose: Not Given Tenofovir Disoproxil Fumarate (Viread) 300 mg PO QWK [facility] Last Admin: 11/06/16 09:41 Dose: 300 mg - Labs Labs: 11/07/16 08:15 11/07/16 08:15 - Constitutional Appears: Agitated - Head Exam Head Exam: ATRAUMATIC, NORMOCEPHALIC - Eye Exam Eye Exam: EOMI, Normal appearance, PERRL Pupil Exam: NORMAL ACCOMODATION - ENT Exam ENT Exam: Mucous Membranes Moist, Normal Exam - Neck Exam Neck Exam: Normal Inspection - Respiratory Exam Respiratory Exam: Clear to Ausculation Bilateral, NORMAL BREATHING PATTERN. absent: Rales, Rhonchi, Wheezes - Cardiovascular Exam Cardiovascular Exam: REGULAR RHYTHM, +S1, +S2. absent: Gallop, Rubs, Murmur - GI/Abdominal Exam GI & Abdominal Exam: Soft, Normal Bowel Sounds - Extremities Exam Additional comments: swelling in right hand - Back Exam Back Exam: NORMAL INSPECTION. absent: rash noted, tenderness - Neurological Exam Neurological Exam: Alert, Awake, CN II-XII Intact, Oriented x3 - Skin Skin Exam: Dry, Intact, Warm Assessment and Plan - Assessment and Plan (Free Text) Assessment: 25 F with past medical hx of HTN, HIV, ESRD on dialysis admitted for chest pain and abdominal pain, found to have pneumonia Plan: 1. Chest pain Cardio consult, Dr. Larios, help appreciated cardiac enzymes negative x 3 ECHO showed: normal LV size and function with LVEF wnl [see full report] EKG: NSR at 91 CT abdomen/pelvis with IV/PO contrast: sever atrophy of kidneys. No acute intra- abdominal findings. Ground-glass interstitial denisties of both lung bases. CT neck/chest: bilateral interstitial infiltrates. Focal alveolar infiltrate in the PAMELA consistent with Pneumonia. Extensive supraclavicular lymphadenopathy. Mediastinal adenopathy (see full report). CXR: Vague bilateral mostly peripheral airspace opacities - infiltrates with or without underlying pleural parenchymal pathology arms some thoughts. Recommend CT neck/chest (see full report). Morphine 4 mg IM Q4H PRN 2. Pneumonia sputum culture AFB sputum culture Airborne isolation Quantiferon Gold procalcitonin 1.13 Legionella Ag influenza a&b negative Continue Meropenem and Zithromax 3. HTN Hydralazine 25 mg PO TID Lisinopril 20 mg PO daily Clonidine 0.3 mg PO BID Labetalol 300 mg PO BID 4. HIV Abacavir 300 mg PO BID Raltegravir 400 mg PO BID Ritonavir 100 mg PO daily Tenofovir 300 mg PO daily HIV-1 RNA Fungitell(1-3) CD4 328 c diff blood/stool/sputum culture ID consult, Dr. Vallecillo, help appreciated Hep panel negative 5. ESRD on HD HD MWF Sevelamer 2400 mg PO WM Cinacalet 60 mg PO HS Nephro consult, Dr. Byrd, help appreciated Renal dialysis diet 6. Constipation Miralax 17 gm PO BID Colace 100 mg PO BID 7. Prophylactic Measures SCDs protonix 40 mg PO daily
--- NOTE | 2016-11-08 23:19 | CP.PCM.PN ---
Subjective - Date & Time of Evaluation Date of Evaluation: 11/08/16 Time of Evaluation: 15:00 - Subjective Subjective: Patient complaining of R abd and flank pain; asking for IV pain meds, not wanting to wait for PO meds; tolerated HD well yesterday; Objective - Vital Signs/Intake and Output Vital Signs (last 24 hours): Temp Pulse Resp BP Pulse Ox 98.3 F 88 20 140/88 98 11/08/16 16:00 11/08/16 18:01 11/08/16 16:00 11/08/16 18:01 11/08/16 16:00 Intake and Output: 11/08/16 11/09/16 18:59 06:59 Intake Total 240 120 Balance 240 120 - Medications Medications: Current Medications Abacavir Sulfate (Ziagen) 300 mg PO BID [facility] Last Admin: 11/08/16 18:00 Dose: 300 mg Acetaminophen (Tylenol 325mg Tab) 650 mg PO Q6H PRN PRN Reason: Fever >100.4 F Last Admin: 11/06/16 05:12 Dose: 650 mg Atovaquone (Mepron) 750 mg PO BID [facility] Last Admin: 11/08/16 18:00 Dose: 750 mg Azithromycin (Zithromax) 500 mg PO DAILY [facility] PRN Reason: Protocol Last Admin: 11/08/16 09:51 Dose: 500 mg Cinacalcet (Sensipar) 60 mg PO HS [facility] Last Admin: 11/08/16 22:19 Dose: 60 mg Clonidine HCl (Catapres) 0.2 mg PO BID [facility] Last Admin: 11/08/16 18:01 Dose: 0.2 mg Diphenhydramine HCl (Benadryl) 50 mg PO Q4H PRN PRN Reason: Allergy symptoms Last Admin: 11/08/16 22:18 Dose: 50 mg Docusate Sodium (Colace) 100 mg PO BID [facility] Last Admin: 11/08/16 18:00 Dose: 100 mg Hydralazine HCl (Apresoline) 25 mg PO TID [facility] Last Admin: 11/08/16 18:00 Dose: 25 mg Meropenem 500 mg/ Sodium (Chloride) 100 mls @ 100 mls/hr IVPB DAILY [facility] PRN Reason: Protocol Labetalol HCl (Trandate) 300 mg PO BID [facility] Last Admin: 11/08/16 18:01 Dose: 300 mg Morphine Sulfate (Morphine) 4 mg SC Q4H PRN PRN Reason: Pain, moderate (4-7) Last Admin: 11/08/16 22:25 Dose: 4 mg Darunavir [Prezista] 800 Mg (Home Med ) 800 mg PO DAILY [facility] Last Admin: 11/08/16 09:53 Dose: Not Given Ramelteon 8 Mg (Home (Med)) 8 mg PO HS PRN PRN Reason: Insomnia Pantoprazole Sodium (Protonix Ec Tab) 40 mg PO 0630 [facility] Last Admin: 11/08/16 05:37 Dose: 40 mg Polyethylene Glycol (Miralax) 17 gm PO BID [facility] Last Admin: 11/08/16 18:00 Dose: 17 gm Raltegravir (Isentress) 400 mg PO BID [facility] Last Admin: 11/08/16 18:01 Dose: 400 mg Ritonavir (Norvir) 100 mg PO DAILY [facility] Last Admin: 11/08/16 09:51 Dose: 100 mg Sevelamer HCl (Renagel) 2,400 mg PO WM [facility] Last Admin: 11/08/16 16:16 Dose: Not Given Tenofovir Disoproxil Fumarate (Viread) 300 mg PO QWK [facility] Last Admin: 11/06/16 09:41 Dose: 300 mg - Labs Labs: 11/07/16 08:15 11/07/16 08:15 Assessment and Plan (1) ESRD on hemodialysis Status: Acute (2) HTN (hypertension) Status: Acute (3) Chest pain Status: Acute (4) Hyperphosphatemia Status: Acute (5) HIV (human immunodeficiency virus infection) Status: Acute
[2016-11-09] MEDS: Morphine 4 mg/ml ISec SC PRN (02:40)
[2016-11-09 04:29] LABS: (1-3)-B-D GLUCAN 103 pg/mL (())
[2016-11-09] MEDS: Pantoprazole 40 mg EC Tab PO SCH (06:45)
[2016-11-09] MEDS: Meropenem 500 MG in Sodium Chloride 0.9% 100 ML IVPB SCH (09:49)
[2016-11-09] MEDS: POLYETHYLENE GLYCOL 3350 17 GM/Dose PACKET PO SCH (09:50)
[2016-11-09] MEDS: Atovaquone 750 mg/5 ml Susp UD PO SCH ×2 (09:50→17:42)
[2016-11-09] MEDS: Morphine 4 mg/ml ISec IVP PRN ×4 (09:51→21:25)
[2016-11-09] MEDS: DARUNAVIR 800 MG PO SCH (09:52)
[2016-11-09 10:22] LABS: ADD MANUAL DIFF? NO
[2016-11-09 10:29] LABS: BASO # 0.01 K/mm3 (0.0-2.0); BASO % 0.3 % (0.0-3.0); EOS # 0.2 (0.0-0.7); EOS % 5.8 % (1.5-5.0); GRAN # 2.16 (1.4-6.5); GRAN % 53.8 % (50.0-68.0); HEMATOCRIT 30.6 % (36.0-48.0); LYMPH # 1.3 (1.2-3.4); LYMPH % 33.3 % (22.0-35.0); MEAN CELL VOLUME 86.2 fL (80.0-105.0); MEAN CORPUSCULAR HEMOGLOBIN 28.5 pg (25.0-35.0); MEAN PLATELET VOLUME 8.9 fl (7.0-11.0); MONO # 0.3 (0.1-0.6); MONO % 6.8 % (1.0-6.0); PLATELET COUNT 115 10^3/uL (120.0-450.0); RED CELL DISTRIBUTION WIDTH 15.9 % (11.5-14.5)
[2016-11-09 10:40] LABS: ALB/GLOB RATIO 1.1 (1.1-1.8); BILIRUBIN,TOTAL 0.7 mg/dL (0.2-1.3); CALCIUM 8.1 mg/dL (8.4-10.5); MAGNESIUM 2.2 mg/dL (1.7-2.2); PHOSPHOROUS 8.4 mg/dL (2.5-4.5); TOTAL PROTEIN 7.6 g/dL (5.8-8.3)
[2016-11-09] MEDS ORDERED: POLYETHYLENE GLYCOL 3350 17 GM/Dose PACKET PO PRN (13:37)
--- NOTE | 2016-11-09 13:40 | CP.PCM.PN ---
Subjective - Date & Time of Evaluation Date of Evaluation: 11/09/16 Time of Evaluation: 10:00 - Subjective Subjective: PGY-[address] Vera Patient seen and examined at bedside. No acute event overnight. Patient sitting in bed comfortably. Patient still complaining of R sided abd pain. She had a BM yesterday. Patient feeling slightly better overall. She has no acute complaints at this time. Denied congestion, fever/chills, cp, SOB, palpitations, n/v/d, incontinence, numbness/tingling. Objective - Vital Signs/Intake and Output Vital Signs (last 24 hours): Temp Pulse Resp BP Pulse Ox 98.3 F 78 20 133/88 98 11/08/16 16:00 11/09/16 09:50 11/08/16 16:00 11/09/16 13:09 11/08/16 16:00 Intake and Output: 11/09/16 11/09/16 06:59 18:59 Intake Total 120 Balance 120 - Medications Medications: Current Medications Abacavir Sulfate (Ziagen) 300 mg PO BID [facility] Last Admin: 11/09/16 09:51 Dose: 300 mg Acetaminophen (Tylenol 325mg Tab) 650 mg PO Q6H PRN PRN Reason: Fever >100.4 F Last Admin: 11/06/16 05:12 Dose: 650 mg Atovaquone (Mepron) 750 mg PO BID [facility] Last Admin: 11/09/16 09:50 Dose: 750 mg Azithromycin (Zithromax) 500 mg PO DAILY [facility] PRN Reason: Protocol Last Admin: 11/09/16 09:50 Dose: 500 mg Cinacalcet (Sensipar) 60 mg PO HS [facility] Last Admin: 11/08/16 22:19 Dose: 60 mg Clonidine HCl (Catapres) 0.2 mg PO BID [facility] Last Admin: 11/09/16 09:51 Dose: 0.2 mg Diphenhydramine HCl (Benadryl) 50 mg PO Q4H PRN PRN Reason: Allergy symptoms Last Admin: 11/09/16 09:54 Dose: 50 mg Docusate Sodium (Colace) 100 mg PO BID [facility] Last Admin: 11/09/16 09:50 Dose: 100 mg Hydralazine HCl (Apresoline) 25 mg PO TID [facility] Last Admin: 11/09/16 13:09 Dose: 25 mg Meropenem 500 mg/ Sodium (Chloride) 100 mls @ 100 mls/hr IVPB DAILY [facility] PRN Reason: Protocol Last Admin: 11/09/16 09:49 Dose: 100 mls/hr Labetalol HCl (Trandate) 300 mg PO BID [facility] Last Admin: 11/09/16 09:50 Dose: 300 mg Morphine Sulfate (Morphine) 4 mg IVP Q4H PRN PRN Reason: Pain, moderate (4-7) Last Admin: 11/09/16 09:51 Dose: 4 mg Darunavir [Prezista] 800 Mg (Home Med ) 800 mg PO DAILY [facility] Last Admin: 11/09/16 09:52 Dose: Not Given Ramelteon 8 Mg (Home (Med)) 8 mg PO HS PRN PRN Reason: Insomnia Pantoprazole Sodium (Protonix Ec Tab) 40 mg PO 0630 [facility] Last Admin: 11/09/16 06:45 Dose: 40 mg Polyethylene Glycol (Miralax) 17 gm PO BID [facility] Last Admin: 11/09/16 09:50 Dose: 17 gm Raltegravir (Isentress) 400 mg PO BID [facility] Last Admin: 11/09/16 09:50 Dose: 400 mg Ritonavir (Norvir) 100 mg PO DAILY [facility] Last Admin: 11/09/16 09:50 Dose: 100 mg Sevelamer HCl (Renagel) 2,400 mg PO WM [facility] Last Admin: 11/09/16 11:46 Dose: Not Given Tenofovir Disoproxil Fumarate (Viread) 300 mg PO QWK [facility] Last Admin: 11/06/16 09:41 Dose: 300 mg - Labs Labs: 11/09/16 10:20 11/09/16 10:20 - Constitutional Appears: No Acute Distress - Head Exam Head Exam: ATRAUMATIC, NORMOCEPHALIC - Eye Exam Eye Exam: EOMI, Normal appearance Pupil Exam: PERRL - ENT Exam ENT Exam: Mucous Membranes Moist - Respiratory Exam Respiratory Exam: Clear to Ausculation Bilateral, NORMAL BREATHING PATTERN - Cardiovascular Exam Cardiovascular Exam: REGULAR RHYTHM, +S1, +S2 - GI/Abdominal Exam GI & Abdominal Exam: Soft, Tenderness (mild in RUQ to deep palpation), Normal Bowel Sounds - Extremities Exam Extremities Exam: Normal Capillary Refill - Back Exam Back Exam: absent: CVA tenderness (L), CVA tenderness (R) - Neurological Exam Neurological Exam: Alert, Awake, CN II-XII Intact, Oriented x3 - Psychiatric Exam Psychiatric exam: Normal Affect, Normal Mood - Skin Skin Exam: Dry, Intact, Normal Color, Warm Assessment and Plan - Assessment and Plan (Free Text) Plan: 25 F with past medical hx of HTN, HIV, ESRD on dialysis admitted for chest pain and abdominal pain, found to have pneumonia 1. Chest pain Cardio consult, Dr. Larios, help appreciated cardiac enzymes negative x 3 ECHO showed: normal LV size and function with LVEF wnl [see full report] EKG: NSR at 91 CT abdomen/pelvis with IV/PO contrast: sever atrophy of kidneys. No acute intra- abdominal findings. Ground-glass interstitial denisties of both lung bases. CT neck/chest: bilateral interstitial infiltrates. Focal alveolar infiltrate in the PAMELA consistent with Pneumonia. Extensive supraclavicular lymphadenopathy. Mediastinal adenopathy (see full report). CXR: Vague bilateral mostly peripheral airspace opacities - infiltrates with or without underlying pleural parenchymal pathology arms some thoughts. Recommend CT neck/chest (see full report). Morphine 4 mg IM Q4H PRN 2. Pneumonia sputum culture AFB sputum culture Airborne isolation Quantiferon Gold procalcitonin 1.13 Legionella Ag influenza a&b negative Continue Meropenem and Zithromax 3. HTN Hydralazine 25 mg PO TID Lisinopril 20 mg PO daily Clonidine 0.3 mg PO BID Labetalol 300 mg PO BID 4. HIV Abacavir 300 mg PO BID Raltegravir 400 mg PO BID Ritonavir 100 mg PO daily Tenofovir 300 mg PO daily HIV-1 RNA <1.30 not detected beta(1-3)D glucan 103 H CD4 328 c diff negative blood/stool/sputum culture ID consult, Dr. Vallecillo, help appreciated Hep panel negative 5. ESRD on HD HD MWF Sevelamer 2400 mg PO WM Cinacalet 60 mg PO HS Nephro consult, Dr. Byrd, help appreciated Renal dialysis diet 6. Constipation Miralax 17 gm PO BID PRN Colace 100 mg PO BID 7. Prophylactic Measures SCDs protonix 40 mg PO daily FOBT negative
--- NOTE | 2016-11-09 14:12 | PN ---
DATE: 11/09/2016 The patient is in bed, in no acute distress, nontoxic. PHYSICAL EXAMINATION: VITAL SIGNS: Temperature is 98, blood pressure is 130/80, respiratory rate of 18. HEENT: Unremarkable. NECK: Supple. LUNGS: Have decreased breath sounds. HEART: Normal S1, S2. ABDOMEN: Soft, nontender. LABORATORY EXAMINATION: Reveals a white count of 4, hemoglobin of 10, platelets of 115. Chemistries are noted. The patient's sodium is 130, creatinine is 9.4. Procal is 1.13. Immunology is noted wi th a CD4 of 328 at 26% and HIV PCR is nondetectable. Microbiology reveals the blood cultures have no growth at 3 days. The stool for C. diff is negative. Review of the chest x-ray reveals the patient had bilateral peripheral airspace opacity, infiltrates. The patient also had a CAT scan of the chest and CAT scan of the neck. Dr. Ellington's note is review ed. Review of the orders reveals the patient to be on azithromycin, meropenem. Urine for legionella antigen has still not been collected. ASSESSMENT AND PLAN: A 25-year-old with sepsis secondary to a left-sided healthcare-associated pneum onia. Workup in progress in a patient who has positive human immunodeficiency virus, good T cells, e nd-stage renal disease on hemodialysis. Will reorder a urine for legionella antigen stat and will fo llow with you. Prashant Slade MD cc: [id number] TT: 11/09/2016 14:12:28 Confirmation # [id number] Dictation # [id number]
[2016-11-09] MEDS: DiphenhydrAMINE 50 mg/ml Inj IVP PRN (22:02)
[2016-11-10] MEDS: Morphine 4 mg/ml ISec IVP PRN ×4 (04:10→20:36)
[2016-11-10] MEDS: DiphenhydrAMINE 50 mg/ml Inj IVP PRN ×4 (05:06→20:35)
[2016-11-10] MEDS: Pantoprazole 40 mg EC Tab PO SCH (06:04)
[2016-11-10 07:20] LABS: ADD MANUAL DIFF? NO
[2016-11-10 07:23] LABS: BASO # 0.01 K/mm3 (0.0-2.0); BASO % 0.3 % (0.0-3.0); EOS # 0.2 (0.0-0.7); EOS % 5.3 % (1.5-5.0); GRAN # 1.95 (1.4-6.5); GRAN % 52.1 % (50.0-68.0); HEMATOCRIT 29.8 % (36.0-48.0); LYMPH # 1.3 (1.2-3.4); LYMPH % 33.7 % (22.0-35.0); MEAN CELL VOLUME 85.4 fL (80.0-105.0); MEAN CORPUSCULAR HEMOGLOBIN 28.1 pg (25.0-35.0); MEAN CORPUSCULAR HGB CONC 32.9 g/dl (31.0-37.0); MEAN PLATELET VOLUME 9.2 fl (7.0-11.0); MONO # 0.3 (0.1-0.6); MONO % 8.6 % (1.0-6.0); PLATELET COUNT 124 10^3/uL (120.0-450.0); RED CELL DISTRIBUTION WIDTH 15.9 % (11.5-14.5); WHITE BLOOD COUNT 3.7 10^3/ul (4.5-11.0)
[2016-11-10 08:01] LABS: ALB/GLOB RATIO 1.1 (1.1-1.8); BILIRUBIN,TOTAL 0.7 mg/dL (0.2-1.3); CALCIUM 7.8 mg/dL (8.4-10.5); MAGNESIUM 2.2 mg/dL (1.7-2.2); PHOSPHOROUS 9.2 mg/dL (2.5-4.5); TOTAL PROTEIN 7.7 g/dL (5.8-8.3)
[2016-11-10 08:17] LABS: POTASSIUM 5.8 mmol/L (3.6-5.0)
[2016-11-10] MEDS: DARUNAVIR 800 MG PO SCH (11:00)
[2016-11-10] MEDS: Atovaquone 750 mg/5 ml Susp UD PO SCH ×2 (11:00→17:48)
--- NOTE | 2016-11-10 13:17 | CP.PCM.PN ---
<Robert Tong - Last Filed: 11/10/16 13:19> Subjective - Date & Time of Evaluation Date of Evaluation: 11/10/16 Time of Evaluation: 08:05 - Subjective Subjective: PGY-[address] Loving Patient seen and examined at bedside. No acute event overnight. Patient sitting in bed comfortably. Patient stated that R sided abd pain is better today. Patient is going for dialysis this morning. She has no acute complaints at this time. Denied congestion, fever/chills, cough, cp, SOB, palpitations, n/v/d, incontinence, numbness/tingling. Objective - Vital Signs/Intake and Output Vital Signs (last 24 hours): Temp Pulse Resp BP Pulse Ox 97.9 F 75 18 123/83 100 11/09/16 16:00 11/09/16 16:00 11/09/16 16:00 11/09/16 17:42 11/09/16 16:00 Intake and Output: 11/10/16 11/10/16 06:59 18:59 Intake Total 480 Balance 480 - Medications Medications: Current Medications Abacavir Sulfate (Ziagen) 300 mg PO BID [facility] Last Admin: 11/09/16 17:42 Dose: 300 mg Acetaminophen (Tylenol 325mg Tab) 650 mg PO Q6H PRN PRN Reason: Fever >100.4 F Last Admin: 11/06/16 05:12 Dose: 650 mg Atovaquone (Mepron) 750 mg PO BID [facility] Last Admin: 11/09/16 17:42 Dose: 750 mg Azithromycin (Zithromax) 500 mg PO DAILY [facility] PRN Reason: Protocol Last Admin: 11/09/16 09:50 Dose: 500 mg Cinacalcet (Sensipar) 60 mg PO HS [facility] Last Admin: 11/09/16 22:01 Dose: 60 mg Clonidine HCl (Catapres) 0.2 mg PO BID [facility] Last Admin: 11/09/16 17:42 Dose: 0.2 mg Diphenhydramine HCl (Benadryl) 50 mg IVP Q4H PRN PRN Reason: Allergy symptoms Last Admin: 11/10/16 10:29 Dose: 50 mg Docusate Sodium (Colace) 100 mg PO BID [facility] Last Admin: 11/09/16 17:45 Dose: Not Given Hydralazine HCl (Apresoline) 25 mg PO TID [facility] Last Admin: 11/09/16 17:42 Dose: 25 mg Meropenem 500 mg/ Sodium (Chloride) 100 mls @ 100 mls/hr IVPB DAILY [facility] PRN Reason: Protocol Last Admin: 11/09/16 09:49 Dose: 100 mls/hr Labetalol HCl (Trandate) 300 mg PO BID [facility] Last Admin: 11/09/16 17:53 Dose: Not Given Morphine Sulfate (Morphine) 4 mg IVP Q4H PRN PRN Reason: Pain, moderate (4-7) Last Admin: 11/10/16 09:05 Dose: 4 mg Darunavir [Prezista] 800 Mg (Home Med ) 800 mg PO DAILY [facility] Last Admin: 11/09/16 09:52 Dose: Not Given Ramelteon 8 Mg (Home (Med)) 8 mg PO HS PRN PRN Reason: Insomnia Pantoprazole Sodium (Protonix Ec Tab) 40 mg PO 0630 [facility] Last Admin: 11/10/16 06:04 Dose: 40 mg Polyethylene Glycol (Miralax) 17 gm PO BID PRN PRN Reason: Constipation Raltegravir (Isentress) 400 mg PO BID [facility] Last Admin: 11/09/16 17:42 Dose: 400 mg Ritonavir (Norvir) 100 mg PO DAILY [facility] Last Admin: 11/09/16 09:50 Dose: 100 mg Sevelamer HCl (Renagel) 2,400 mg PO WM [facility] Last Admin: 11/10/16 07:53 Dose: 2,400 mg Tenofovir Disoproxil Fumarate (Viread) 300 mg PO QWK [facility] Last Admin: 11/06/16 09:41 Dose: 300 mg - Labs Labs: 11/10/16 07:00 11/10/16 07:00 - Constitutional Appears: No Acute Distress - Head Exam Head Exam: ATRAUMATIC, NORMOCEPHALIC - Eye Exam Eye Exam: EOMI, Normal appearance Pupil Exam: PERRL - ENT Exam ENT Exam: Mucous Membranes Moist - Neck Exam Neck Exam: Normal Inspection - Respiratory Exam Respiratory Exam: Clear to Ausculation Bilateral, NORMAL BREATHING PATTERN - Cardiovascular Exam Cardiovascular Exam: RRR, +S1, +S2 - GI/Abdominal Exam GI & Abdominal Exam: Soft, Tenderness (mild to palpation), Normal Bowel Sounds - Extremities Exam Extremities Exam: Normal Capillary Refill Additional comments: LUE AVF - Back Exam Back Exam: absent: CVA tenderness (L), CVA tenderness (R) - Neurological Exam Neurological Exam: Alert, Awake, CN II-XII Intact, Normal Gait, Oriented x3 - Psychiatric Exam Psychiatric exam: Normal Affect, Normal Mood - Skin Skin Exam: Dry, Intact, Normal Color, Warm Assessment and Plan - Assessment and Plan (Free Text) Plan: 25 F with past medical hx of HTN, HIV, ESRD on dialysis admitted for chest pain and abdominal pain, found to have pneumonia 1. Chest pain Cardio consult, Dr. Larios, help appreciated cardiac enzymes negative x 3 ECHO showed: normal LV size and function with LVEF wnl [see full report] EKG: NSR at 91 CT abdomen/pelvis with IV/PO contrast: sever atrophy of kidneys. No acute intra- abdominal findings. Ground-glass interstitial denisties of both lung bases. CT neck/chest: bilateral interstitial infiltrates. Focal alveolar infiltrate in the PAMELA consistent with Pneumonia. Extensive supraclavicular lymphadenopathy. Mediastinal adenopathy (see full report). CXR: Vague bilateral mostly peripheral airspace opacities - infiltrates with or without underlying pleural parenchymal pathology arms some thoughts. Recommend CT neck/chest (see full report). Morphine 4 mg IM Q4H PRN 2. Pneumonia sputum culture AFB sputum culture Airborne isolation Quantiferon Gold procalcitonin 1.13 influenza a&b negative Continue Meropenem and Zithromax 3. HTN Hydralazine 25 mg PO TID Lisinopril 20 mg PO daily Clonidine 0.3 mg PO BID Labetalol 300 mg PO BID 4. HIV Abacavir 300 mg PO BID Raltegravir 400 mg PO BID Ritonavir 100 mg PO daily Tenofovir 300 mg PO daily HIV-1 RNA <1.30 not detected beta(1-3)D glucan 103 H CD4 328 c diff negative blood/stool/sputum culture ID consult, Dr. Vallecillo, help appreciated Hep panel negative 5. ESRD on HD HD MWF Sevelamer 2400 mg PO WM Cinacalet 60 mg PO HS Nephro consult, Dr. Byrd, help appreciated Renal dialysis diet 6. Constipation Miralax 17 gm PO BID PRN Colace 100 mg PO BID 7. Prophylactic Measures SCDs protonix 40 mg PO daily FOBT negative <Eva Loving - Last Filed: 11/10/16 18:08> Objective - Vital Signs/Intake and Output Vital Signs (last 24 hours): Temp Pulse Resp BP Pulse Ox 97.9 F 87 18 125/72 100 11/10/16 16:20 11/10/16 17:51 11/10/16 16:20 11/10/16 17:51 11/09/16 16:00 Intake and Output: 11/10/16 11/10/16 06:59 18:59 Intake Total 480 240 Balance 480 240 - Medications Medications: Current Medications Abacavir Sulfate (Ziagen) 300 mg PO BID [facility] Last Admin: 11/10/16 17:50 Dose: 300 mg Acetaminophen (Tylenol 325mg Tab) 650 mg PO Q6H PRN PRN Reason: Fever >100.4 F Last Admin: 11/06/16 05:12 Dose: 650 mg Atovaquone (Mepron) 750 mg PO BID [facility] Last Admin: 11/10/16 17:48 Dose: 750 mg Azithromycin (Zithromax) 500 mg PO DAILY [facility] PRN Reason: Protocol Last Admin: 11/10/16 15:57 Dose: 500 mg Cinacalcet (Sensipar) 60 mg PO HS [facility] Last Admin: 11/09/16 22:01 Dose: 60 mg Clonidine HCl (Catapres) 0.2 mg PO BID [facility] Last Admin: 11/10/16 17:50 Dose: 0.2 mg Diphenhydramine HCl (Benadryl) 50 mg IVP Q4H PRN PRN Reason: Allergy symptoms Last Admin: 11/10/16 16:41 Dose: 50 mg Docusate Sodium (Colace) 100 mg PO BID [facility] Last Admin: 11/10/16 17:48 Dose: 100 mg Hydralazine HCl (Apresoline) 25 mg PO TID [facility] Last Admin: 11/10/16 17:48 Dose: 25 mg Meropenem 500 mg/ Sodium (Chloride) 100 mls @ 100 mls/hr IVPB DAILY [facility] PRN Reason: Protocol Last Admin: 11/10/16 16:34 Dose: 100 mls/hr Labetalol HCl (Trandate) 300 mg PO BID [facility] Last Admin: 11/10/16 17:51 Dose: 300 mg Morphine Sulfate (Morphine) 4 mg IVP Q4H PRN PRN Reason: Pain, moderate (4-7) Last Admin: 11/10/16 15:58 Dose: 4 mg Darunavir [Prezista] 800 Mg (Home Med ) 800 mg PO DAILY [facility] Last Admin: 11/09/16 09:52 Dose: Not Given Ramelteon 8 Mg (Home (Med)) 8 mg PO HS PRN PRN Reason: Insomnia Pantoprazole Sodium (Protonix Ec Tab) 40 mg PO 0630 [facility] Last Admin: 11/10/16 06:04 Dose: 40 mg Polyethylene Glycol (Miralax) 17 gm PO BID PRN PRN Reason: Constipation Raltegravir (Isentress) 400 mg PO BID [facility] Last Admin: 11/10/16 17:49 Dose: 400 mg Ritonavir (Norvir) 100 mg PO DAILY [facility] Last Admin: 11/10/16 15:58 Dose: 100 mg Sevelamer HCl (Renagel) 2,400 mg PO WM [facility] Last Admin: 11/10/16 17:50 Dose: 2,400 mg Tenofovir Disoproxil Fumarate (Viread) 300 mg PO QWK [facility] Last Admin: 11/06/16 09:41 Dose: 300 mg - Labs Labs: 11/10/16 07:00 11/10/16 07:00 Assessment and Plan - Assessment and Plan (Free Text) Assessment: attending note; Patient seen and examined with resident. Patient is a 25-year-old female with the past medical history of HIV, asthma, HTN, ESRD on dialysis MWF presenting with chest discomfort. CT chest consistent with alveolar infiltrate And left upper lobe infiltrate. CD4 is 328. currently on meropenem and Zithromax For healthcare associated pneumonia. patient is afebrile and nontoxic. denies cough, sputum production. QuantiFERON is pending. continue HIV medication. Patient had hemodialysis today. If quantiferon on is negative possible discharge home tomorrow with close outpatient ID follow up. Attending/Attestation - Attestation I have personally seen and examined this patient.: Yes I have fully participated in the care of the patient.: Yes I have reviewed all pertinent clinical information, including history, physical exam and plan: Yes
[2016-11-10] MEDS: Meropenem 500 MG in Sodium Chloride 0.9% 100 ML IVPB SCH (16:34)
--- NOTE | 2016-11-10 18:10 | CP.PCM.PN ---
Subjective - Date & Time of Evaluation Date of Evaluation: 11/10/16 Time of Evaluation: 11:10 - Subjective Subjective: Comfortable in bed, not in distress. Objective - Vital Signs/Intake and Output Vital Signs (last 24 hours): Temp Pulse Resp BP Pulse Ox 97.9 F 87 18 125/72 100 11/10/16 16:20 11/10/16 17:51 11/10/16 16:20 11/10/16 17:51 11/09/16 16:00 Intake and Output: 11/10/16 11/10/16 06:59 18:59 Intake Total 480 240 Balance 480 240 - Medications Medications: Current Medications Abacavir Sulfate (Ziagen) 300 mg PO BID [facility] Last Admin: 11/10/16 17:50 Dose: 300 mg Acetaminophen (Tylenol 325mg Tab) 650 mg PO Q6H PRN PRN Reason: Fever >100.4 F Last Admin: 11/06/16 05:12 Dose: 650 mg Atovaquone (Mepron) 750 mg PO BID [facility] Last Admin: 11/10/16 17:48 Dose: 750 mg Azithromycin (Zithromax) 500 mg PO DAILY [facility] PRN Reason: Protocol Last Admin: 11/10/16 15:57 Dose: 500 mg Cinacalcet (Sensipar) 60 mg PO HS [facility] Last Admin: 11/09/16 22:01 Dose: 60 mg Clonidine HCl (Catapres) 0.2 mg PO BID [facility] Last Admin: 11/10/16 17:50 Dose: 0.2 mg Diphenhydramine HCl (Benadryl) 50 mg IVP Q4H PRN PRN Reason: Allergy symptoms Last Admin: 11/10/16 16:41 Dose: 50 mg Docusate Sodium (Colace) 100 mg PO BID [facility] Last Admin: 11/10/16 17:48 Dose: 100 mg Hydralazine HCl (Apresoline) 25 mg PO TID [facility] Last Admin: 11/10/16 17:48 Dose: 25 mg Meropenem 500 mg/ Sodium (Chloride) 100 mls @ 100 mls/hr IVPB DAILY [facility] PRN Reason: Protocol Last Admin: 11/10/16 16:34 Dose: 100 mls/hr Labetalol HCl (Trandate) 300 mg PO BID [facility] Last Admin: 11/10/16 17:51 Dose: 300 mg Morphine Sulfate (Morphine) 4 mg IVP Q4H PRN PRN Reason: Pain, moderate (4-7) Last Admin: 11/10/16 15:58 Dose: 4 mg Darunavir [Prezista] 800 Mg (Home Med ) 800 mg PO DAILY [facility] Last Admin: 11/09/16 09:52 Dose: Not Given Ramelteon 8 Mg (Home (Med)) 8 mg PO HS PRN PRN Reason: Insomnia Pantoprazole Sodium (Protonix Ec Tab) 40 mg PO 0630 [facility] Last Admin: 11/10/16 06:04 Dose: 40 mg Polyethylene Glycol (Miralax) 17 gm PO BID PRN PRN Reason: Constipation Raltegravir (Isentress) 400 mg PO BID [facility] Last Admin: 11/10/16 17:49 Dose: 400 mg Ritonavir (Norvir) 100 mg PO DAILY [facility] Last Admin: 11/10/16 15:58 Dose: 100 mg Sevelamer HCl (Renagel) 2,400 mg PO WM [facility] Last Admin: 11/10/16 17:50 Dose: 2,400 mg Tenofovir Disoproxil Fumarate (Viread) 300 mg PO QWK [facility] Last Admin: 11/06/16 09:41 Dose: 300 mg - Labs Labs: 11/10/16 07:00 11/10/16 07:00 - Constitutional Appears: Non-toxic, No Acute Distress - Head Exam Head Exam: NORMAL INSPECTION - Neck Exam Neck Exam: absent: Lymphadenopathy, Meningismus - Respiratory Exam Respiratory Exam: Decreased Breath Sounds - Cardiovascular Exam Cardiovascular Exam: +S1, +S2 - GI/Abdominal Exam GI & Abdominal Exam: Soft. absent: Tenderness Assessment and Plan - Assessment and Plan (Free Text) Plan: Assessment Sepsis secondary to left sided healthcare-associated pneumonia with possible gram positive cocci and/or gram negative bacilli, R/O pneumocystis pneumonia; her presentation is not typical of TB and our suspicion is still low, but need to rule it out (her last PPD in November 2015 was negative and has been negative since 2012 when it was first checked in HIV clinic in [place], no cavitary lesion, although there is mediastinal lymphadenopathy); clinically improving HIV, diagnosed years ago, last CD4 count as an outpatient was 384 in 2015, most recent virus load 2015 was undetectable, currently on cART (with history of low CD4 count and was previously on prophylaxis) ESRD on HD S/P kidney transplant S/P cholecystectomy asthma HTN Plan continue Merrem and Zithromax pending final blood, sputum cx (day 5) of 5-7 days ; PCT is elevated although she has chronic renal failure; follow up urine Legionella Ag; rapid Influenza test is negative; continue Mepron pending beta glucan test follow up Pulmonary evaluation and check Quantiferon TB test, sputum AFB Will continue Abacavir, adjust Tenofovir to once weekly dosing, continue boosted Darunavir and Raltegravir Follow up HIV virus load; CD4 count is 328 during this admission Will monitor clinical response and trend fever curve
[2016-11-10] MEDS ORDERED: Darbepoetin Alfa 25 mcg/ml Inj SC ONE (19:00)
--- NOTE | 2016-11-10 19:18 | PN ---
DATE: 11/10/2016 The patient is a 25-year-old female with history of end-stage renal disease on hemodialysis, previous failed transplant, hypertension, HIV, on HAART, admitted with healthcare-associated pneumonia. The patient is still complaining of right flank pain. Reports improvement with pain medications. PHYSICAL EXAMINATION: VITAL SIGNS: Blood pressure 125/72, heart rate of 88, respiration 18, temperature 97.9. The patient seen on hemodialysis. GENERAL: No distress, answering questions coherently. HEENT: Moist mucous membranes. CHEST: Clear to auscultation bilaterally. HEART: S1, S2 positive, no murmurs, no rubs, no gallops. No JVD. ABDOMEN: Soft, nondistended. Right-sided tenderness. EXTREMITIES: Mild bilateral lower leg edema. ASSESSMENT: 1. End-stage renal disease, on hemodialysis. The patient with evidence of volume excess on exam, UF goal of 3 liters today. We will try to take off more on subsequent dialysis session, mild hyperkale shelli will correct hemodialysis. 2. Hypertension, controlled on decreased medications while here. Currently on clonidine 0.2 mg b.i. d., down from 0.3 mg, hydralazine 25 mg t.i.d., labetalol 300 mg b.i.d., lisinopril, being held. 3. Pneumonia being treated as healthcare-associated pneumonia with meropenem, being dosed at 500 mg daily. Need to ensure medication is dosed after dialysis as the drug and its metabolites are readily dialyzable. 4. Human immunodeficiency virus on HAART. Continue per ID recommendations. 5. Chronic kidney disease, mineral bone disease, severe phosphatemia. The patient refusing phos bin ders regularly. The patient counseled previously about the risk of increased vascular calcifications . 6. Anemia. Need to check iron studies. We will give a dose of darbepoetin. Hieu Ellington MD cc: [id number] TT: 11/10/2016 19:18:17 Confirmation # [id number] Dictation # [id number] jn
[2016-11-11] MEDS: DiphenhydrAMINE 50 mg/ml Inj IVP PRN ×6 (00:32→23:00)
[2016-11-11] MEDS: Morphine 4 mg/ml ISec IVP PRN ×6 (00:33→23:01)
[2016-11-11] MEDS: Pantoprazole 40 mg EC Tab PO SCH (06:30)
--- NOTE | 2016-11-11 09:32 | CP.PCM.PN ---
<Kim Tongy - Last Filed: 11/11/16 13:36> Subjective - Date & Time of Evaluation Date of Evaluation: 11/11/16 Time of Evaluation: 09:20 - Subjective Subjective: PGY-[address] Loving Patient seen and examined at bedside. No acute event overnight. Patient sitting in bed comfortably eating breakfast. Patient stated that her abdominal pain is not bothering her today. She has no acute complaints at this time. Denied congestion, fever/chills, cough, cp, SOB, palpitations, n/v/d, incontinence, numbness/tingling. Objective - Vital Signs/Intake and Output Vital Signs (last 24 hours): Temp Pulse Resp BP Pulse Ox 82 F L 20 L 94 H 145/100 H 100 11/11/16 07:30 11/11/16 07:30 11/11/16 07:30 11/11/16 07:30 11/09/16 16:00 Intake and Output: 11/11/16 11/11/16 06:59 18:59 Intake Total 1440 Output Total 0 Balance 1440 - Medications Medications: Current Medications Abacavir Sulfate (Ziagen) 300 mg PO BID [facility] Last Admin: 11/10/16 17:50 Dose: 300 mg Acetaminophen (Tylenol 325mg Tab) 650 mg PO Q6H PRN PRN Reason: Fever >100.4 F Last Admin: 11/06/16 05:12 Dose: 650 mg Atovaquone (Mepron) 750 mg PO BID [facility] Last Admin: 11/10/16 17:48 Dose: 750 mg Azithromycin (Zithromax) 500 mg PO DAILY [facility] PRN Reason: Protocol Last Admin: 11/10/16 15:57 Dose: 500 mg Cinacalcet (Sensipar) 60 mg PO HS [facility] Last Admin: 11/10/16 21:08 Dose: 60 mg Clonidine HCl (Catapres) 0.2 mg PO BID [facility] Last Admin: 11/11/16 06:44 Dose: 0.2 mg Diphenhydramine HCl (Benadryl) 50 mg IVP Q4H PRN PRN Reason: Allergy symptoms Last Admin: 11/11/16 04:38 Dose: 50 mg Docusate Sodium (Colace) 100 mg PO BID [facility] Last Admin: 11/10/16 17:48 Dose: 100 mg Hydralazine HCl (Apresoline) 25 mg PO TID [facility] Last Admin: 11/10/16 17:48 Dose: 25 mg Meropenem 500 mg/ Sodium (Chloride) 100 mls @ 100 mls/hr IVPB DAILY [facility] PRN Reason: Protocol Last Admin: 11/10/16 16:34 Dose: 100 mls/hr Labetalol HCl (Trandate) 300 mg PO BID [facility] Last Admin: 11/10/16 17:51 Dose: 300 mg Morphine Sulfate (Morphine) 4 mg IVP Q4H PRN PRN Reason: Pain, moderate (4-7) Last Admin: 11/11/16 04:38 Dose: 4 mg Darunavir [Prezista] 800 Mg (Home Med ) 800 mg PO DAILY [facility] Last Admin: 11/10/16 11:00 Dose: Not Given Ramelteon 8 Mg (Home (Med)) 8 mg PO HS PRN PRN Reason: Insomnia Pantoprazole Sodium (Protonix Ec Tab) 40 mg PO 0630 [facility] Last Admin: 11/11/16 06:30 Dose: 40 mg Polyethylene Glycol (Miralax) 17 gm PO BID PRN PRN Reason: Constipation Raltegravir (Isentress) 400 mg PO BID [facility] Last Admin: 11/10/16 17:49 Dose: 400 mg Ritonavir (Norvir) 100 mg PO DAILY [facility] Last Admin: 11/10/16 15:58 Dose: 100 mg Sevelamer HCl (Renagel) 2,400 mg PO WM [facility] Last Admin: 11/10/16 17:50 Dose: 2,400 mg Tenofovir Disoproxil Fumarate (Viread) 300 mg PO QWK [facility] Last Admin: 11/06/16 09:41 Dose: 300 mg - Labs Labs: 11/10/16 07:00 11/10/16 07:00 - Constitutional Appears: No Acute Distress - Head Exam Head Exam: ATRAUMATIC, NORMOCEPHALIC - Eye Exam Eye Exam: EOMI, Normal appearance Pupil Exam: PERRL - ENT Exam ENT Exam: Mucous Membranes Moist - Neck Exam Neck Exam: Normal Inspection - Respiratory Exam Respiratory Exam: Clear to Ausculation Bilateral, NORMAL BREATHING PATTERN - Cardiovascular Exam Cardiovascular Exam: REGULAR RHYTHM, +S1, +S2 - GI/Abdominal Exam GI & Abdominal Exam: Soft, Normal Bowel Sounds. absent: Tenderness - Extremities Exam Extremities Exam: Normal Capillary Refill Additional comments: LUE AVF - Back Exam Back Exam: absent: CVA tenderness (L), CVA tenderness (R) - Neurological Exam Neurological Exam: Alert, Awake, CN II-XII Intact, Normal Gait, Oriented x3 - Psychiatric Exam Psychiatric exam: Normal Affect, Normal Mood - Skin Skin Exam: Dry, Intact, Normal Color, Warm Assessment and Plan - Assessment and Plan (Free Text) Plan: 25 F with past medical hx of HTN, HIV, ESRD on dialysis admitted for chest pain and abdominal pain, found to have pneumonia 1. Chest pain Cardio consult, Dr. Larios, help appreciated cardiac enzymes negative x 3 ECHO showed: normal LV size and function with LVEF wnl [see full report] EKG: NSR at 91 CT abdomen/pelvis with IV/PO contrast: sever atrophy of kidneys. No acute intra- abdominal findings. Ground-glass interstitial denisties of both lung bases. CT neck/chest: bilateral interstitial infiltrates. Focal alveolar infiltrate in the PAMELA consistent with Pneumonia. Extensive supraclavicular lymphadenopathy. Mediastinal adenopathy (see full report). CXR: Vague bilateral mostly peripheral airspace opacities - infiltrates with or without underlying pleural parenchymal pathology arms some thoughts. Recommend CT neck/chest (see full report). Morphine 4 mg IM Q4H PRN 2. Pneumonia ID consult, Dr. Vallecillo, help appreciated Pulm consult, Dr. Echeverria, help appreciated sputum culture AFB sputum culture Airborne isolation Quantiferon Gold procalcitonin 1.13 influenza a&b negative Continue Meropenem and Zithromax 3. HTN Hydralazine 25 mg PO TID Lisinopril 20 mg PO daily Clonidine 0.3 mg PO BID Labetalol 300 mg PO BID 4. HIV Abacavir 300 mg PO BID Raltegravir 400 mg PO BID Ritonavir 100 mg PO daily Tenofovir 300 mg PO daily HIV-1 RNA <1.30 not detected beta(1-3)D glucan 103 H CD4 328 c diff negative blood/stool/sputum culture ID consult, Dr. Vallecillo, help appreciated Hep panel negative 5. ESRD on HD HD MWF Sevelamer 2400 mg PO WM Cinacalet 60 mg PO HS Nephro consult, Dr. Byrd, help appreciated Renal dialysis diet 6. Constipation Miralax 17 gm PO BID PRN Colace 100 mg PO BID 7. Prophylactic Measures SCDs protonix 40 mg PO daily FOBT negative <Eva Loving - Last Filed: 11/11/16 15:44> Objective - Vital Signs/Intake and Output Vital Signs (last 24 hours): Temp Pulse Resp BP Pulse Ox 82 F L 20 L 94 H 138/96 H 94 L 11/11/16 07:30 11/11/16 07:30 11/11/16 07:30 11/11/16 14:47 11/11/16 12:16 Intake and Output: 11/11/16 11/11/16 06:59 18:59 Intake Total 1440 360 Output Total 0 Balance 1440 360 - Medications Medications: Current Medications Abacavir Sulfate (Ziagen) 300 mg PO BID [facility] Last Admin: 11/11/16 09:44 Dose: 300 mg Acetaminophen (Tylenol 325mg Tab) 650 mg PO Q6H PRN PRN Reason: Fever >100.4 F Last Admin: 11/06/16 05:12 Dose: 650 mg Atovaquone (Mepron) 750 mg PO BID [facility] Last Admin: 11/11/16 09:44 Dose: 750 mg Azithromycin (Zithromax) 500 mg PO DAILY [facility] PRN Reason: Protocol Last Admin: 11/11/16 09:45 Dose: 500 mg Cinacalcet (Sensipar) 60 mg PO HS [facility] Last Admin: 11/10/16 21:08 Dose: 60 mg Clonidine HCl (Catapres) 0.2 mg PO BID [facility] Last Admin: 11/11/16 09:46 Dose: Not Given Diphenhydramine HCl (Benadryl) 50 mg IVP Q4H PRN PRN Reason: Allergy symptoms Last Admin: 11/11/16 14:34 Dose: 50 mg Docusate Sodium (Colace) 100 mg PO BID [facility] Last Admin: 11/11/16 09:45 Dose: 100 mg Hydralazine HCl (Apresoline) 25 mg PO TID [facility] Last Admin: 11/11/16 14:47 Dose: 25 mg Meropenem 500 mg/ Sodium (Chloride) 100 mls @ 100 mls/hr IVPB DAILY [facility] PRN Reason: Protocol Last Admin: 11/11/16 09:57 Dose: 100 mls/hr Labetalol HCl (Trandate) 300 mg PO BID [facility] Last Admin: 11/11/16 09:44 Dose: 300 mg Morphine Sulfate (Morphine) 4 mg IVP Q4H PRN PRN Reason: Pain, moderate (4-7) Last Admin: 11/11/16 14:34 Dose: 4 mg Darunavir [Prezista] 800 Mg (Home Med ) 800 mg PO DAILY [facility] Last Admin: 11/11/16 09:46 Dose: Not Given Ramelteon 8 Mg (Home (Med)) 8 mg PO HS PRN PRN Reason: Insomnia Pantoprazole Sodium (Protonix Ec Tab) 40 mg PO 0630 [facility] Last Admin: 11/11/16 06:30 Dose: 40 mg Polyethylene Glycol (Miralax) 17 gm PO BID PRN PRN Reason: Constipation Raltegravir (Isentress) 400 mg PO BID [facility] Last Admin: 11/11/16 09:44 Dose: 400 mg Ritonavir (Norvir) 100 mg PO DAILY [facility] Last Admin: 11/11/16 09:44 Dose: 100 mg Sevelamer HCl (Renagel) 2,400 mg PO WM [facility] Last Admin: 11/11/16 09:45 Dose: 2,400 mg Tenofovir Disoproxil Fumarate (Viread) 300 mg PO QWK [facility] Last Admin: 11/06/16 09:41 Dose: 300 mg - Labs Labs: 11/10/16 07:00 11/10/16 07:00 Assessment and Plan - Assessment and Plan (Free Text) Assessment: attending note; Patient seen and examined with resident. Patient is a 25-year-old female with the past medical history of HIV, asthma, HTN, ESRD on dialysis MWF presenting with chest discomfort. CT chest consistent with alveolar infiltrate And left upper lobe infiltrate. CD4 is 328. currently on meropenem and Zithromax For healthcare associated pneumonia. patient is afebrile and nontoxic. denies cough, sputum production. QuantiFERON is pending.sputum for AFB is pending. continue HIV medication. Patient will go for hemodialysis tomorrow. If quantiferon on is negative possible discharge home with close outpatient ID follow up. Attending/Attestation - Attestation I have personally seen and examined this patient.: Yes I have fully participated in the care of the patient.: Yes I have reviewed all pertinent clinical information, including history, physical exam and plan: Yes
[2016-11-11] MEDS: Atovaquone 750 mg/5 ml Susp UD PO SCH ×2 (09:44→18:25)
[2016-11-11] MEDS: DARUNAVIR 800 MG PO SCH (09:46)
[2016-11-11] MEDS: Meropenem 500 MG in Sodium Chloride 0.9% 100 ML IVPB SCH (09:57)
[2016-11-12] MEDS: Morphine 4 mg/ml ISec IVP PRN ×2 (03:13→07:01)
[2016-11-12] MEDS: DiphenhydrAMINE 50 mg/ml Inj IVP PRN ×4 (03:13→20:02)
[2016-11-12] MEDS: Pantoprazole 40 mg EC Tab PO SCH (07:01)
[2016-11-12] MEDS ORDERED: Oxycodone/Acetaminophen 5/325 mg Tab PO PRN (07:58)
--- NOTE | 2016-11-12 08:23 | PN ---
DATE: 11/11/2016 NEPHROLOGY FOLLOWUP NOTE The patient is a 25-year-old female with history of ESRD on hemodialysis, previous failed transplant, hypertension, HIV on HAART admitted with healthcare-associated pneumonia. The patient continues to complaint of right flank and right abdominal pain. Otherwise, denies shortness of breath. Toleratin g diet. PHYSICAL EXAMINATION: VITAL SIGNS: This morning, blood pressure 145/100, heart rate 82, satting 94% on room air. GENERAL: No apparent distress, sitting up at side of bed. HEENT: Moist mucous membranes. CHEST: Clear to auscultation bilaterally. No rales, no rhonchi. HEART: S1, S2 positive, no murmurs, no gallops, no rubs. ABDOMEN: Soft, nondistended. Right-sided tenderness with right flank tenderness. EXTREMITIES: Mild to moderate bilateral lower leg edema. ASSESSMENT: 1. End-stage renal disease on hemodialysis with evidence of volume excess on exam. We will aim for a UF goal of 3 liters on dialysis tomorrow. 2. Hypertension, uncontrolled. The patient currently on lower dose of clonidine 0.2 mg b.i.d., down from 0.3 mg. JIMMIE inhibitor also being held; can restart JIMMIE inhibitor, withheld due to concern for sepsis and low normal blood pressure. 3. Healthcare-associated pneumonia, on meropenem, being dosed at 500 mg daily, need to ensure medica tion is dosed after dialysis, as the drug and its metabolites are readily dialyzable. 4. Human immunodeficiency virus on HAART, continue per ID recommendations. 5. Chronic kidney disease, mineral bone disease, severe hyperphosphatemia. The patient regularly re fuses phosphate binders. 6. Anemia. Iron studies ordered. Given dose of darbepoetin yesterday. Monitor. 7. Right abdominal/flank pain. Per discussion with hospitalization, the patient did not mention the se complaints to her. Suspecting pain seeking behavior, as the patient is frequently requesting IV p ain medications. Imaging done on presentation showed no pathology that would be causative of the pat ient's symptoms. Hieu Ellington MD cc: [id number] TT: 11/11/2016 21:41:48 Confirmation # [id number] Dictation # [id number] mn
[2016-11-12 08:52] VITALS: RESP 20; TEMP 98; O2SAT 96
--- NOTE | 2016-11-12 09:25 | CP.PCM.DIS ---
Provider - Provider Date of Admission: 11/06/16 09:17 Attending physician: Eva Loving MD Consults: ID: [id number] Pulm: Juwan Nephro: Pritsiolas Cardio: Harriet Time Spent in preparation of Discharge (in minutes): 40 Diagnosis - Discharge Diagnosis (1) Chest pain Status: Acute Comment: see hospital course (2) ESRD on hemodialysis Status: Chronic Comment: see hospital course (3) HIV (human immunodeficiency virus infection) Status: Chronic Comment: see hospital course (4) HTN (hypertension) Status: Chronic Comment: see hospital course (5) Hyperphosphatemia Status: Chronic Comment: see hospital course Hospital Course - Lab Results Lab Results: Micro Results 11/10/16 17:15 Other: Please Indicate Mycobacterial Culture - Preliminary 11/08/16 13:00 Stool Stool Culture - Final NO SALMONELLA, SHIGELLA OR CAMPYLOBACTER ISOLATED. 11/08/16 10:30 Stool C. difficile Antigen & Toxin A,B (M - Final Most Recent Lab Values WBC 3.7 10^3/ul (4.5-11.0) L 11/10/16 07:00 RBC 3.49 10^6/uL (3.5-6.1) L 11/10/16 07:00 Hgb 9.8 gm/dL (12.0-16.0) L 11/10/16 07:00 Hct 29.8 % (36.0-48.0) L 11/10/16 07:00 MCV 85.4 fL (80.0-105.0) 11/10/16 07:00 MCH 28.1 pg (25.0-35.0) 11/10/16 07:00 MCHC 32.9 g/dl (31.0-37.0) 11/10/16 07:00 RDW 15.9 % (11.5-14.5) H 11/10/16 07:00 Plt Count 124 10^3/uL (120.0-450.0) 11/10/16 07:00 MPV 9.2 fl (7.0-11.0) 11/10/16 07:00 Gran % 52.1 % (50.0-68.0) 11/10/16 07:00 Lymph % (Auto) 33.7 % (22.0-35.0) 11/10/16 07:00 Fillmore % (Auto) 8.6 % (1.0-6.0) H 11/10/16 07:00 Eos % (Auto) 5.3 % (1.5-5.0) H 11/10/16 07:00 Baso % (Auto) 0.3 % (0.0-3.0) 11/10/16 07:00 Gran # 1.95 (1.4-6.5) 11/10/16 07:00 Lymph # 1.3 (1.2-3.4) 11/10/16 07:00 Fillmore # 0.3 (0.1-0.6) 11/10/16 07:00 Eos # 0.2 (0.0-0.7) 11/10/16 07:00 Baso # 0.01 K/mm3 (0.0-2.0) 11/10/16 07:00 Sodium 130 mmol/L (132-148) L 11/10/16 07:00 Potassium 5.8 mmol/L (3.6-5.0) H* 11/10/16 07:00 Chloride 90 mmol/L (98-107) L 11/10/16 07:00 Carbon Dioxide 21 mmol/L (21-33) 11/10/16 07:00 Anion Gap 25 (10-20) H 11/10/16 07:00 BUN 58 mg/dL (7-21) H 11/10/16 07:00 Creatinine 11.5 mg/dL (0.5-1.4) H* 11/10/16 07:00 Est GFR ( Amer) 5 11/10/16 07:00 Est GFR (Non-Af Amer) 4 11/10/16 07:00 Random Glucose 89 mg/dL (70-110) 11/10/16 07:00 Calcium 7.8 mg/dL (8.4-10.5) L 11/10/16 07:00 Phosphorus 9.2 mg/dL (2.5-4.5) H 11/10/16 07:00 Magnesium 2.2 mg/dL (1.7-2.2) 11/10/16 07:00 Total Bilirubin 0.7 mg/dL (0.2-1.3) 11/10/16 07:00 AST 19 U/L (15-39) 11/10/16 07:00 ALT 8 U/L (7-56) 11/10/16 07:00 Alkaline Phosphatase 116 U/L (38-133) 11/10/16 07:00 Lactate Dehydrogenase 370 U/L (333-699) 11/06/16 06:30 Total Creatine Kinase 77 U/L (35-230) 11/06/16 06:30 Troponin I 0.07 ng/mL 11/06/16 06:30 Total Protein 7.7 g/dL (5.8-8.3) 11/10/16 07:00 Albumin 4.0 g/dL (3.0-4.8) 11/10/16 07:00 Globulin 3.7 gm/dL 11/10/16 07:00 Albumin/Globulin Ratio 1.1 (1.1-1.8) 11/10/16 07:00 Amylase 153 U/L (35-125) H 11/06/16 06:30 Lipase 84 U/L (23-300) 11/06/16 06:30 Procalcitonin 1.13 NG/ML (0.19-0.49) H 11/06/16 06:30 Beta HCG, Quant < 2.39 mIU/mL (0-6.15) 11/05/16 00:50 Stool Occult Blood Negative (NEGATIVE) 11/08/16 10:30 Absolute Lymphs (Flow) 1274 Cells/mcL (850-3900) 11/06/16 06:30 % CD3 Cells 62 Percent (57-85) 11/06/16 06:30 Absolute CD3 Count 789 Cells/mcL (840-3060) L 11/06/16 06:30 % CD3-/CD16+/CD56+ 8 Percent (4-25) 11/06/16 06:30 % CD4 Cells 26 Percent (30-61) L 11/06/16 06:30 Absolute CD4 Count 328 Cells/mcL (490-1740) L 11/06/16 06:30 T-Help/Suppress Ratio 0.73 Ratio (0.86-5.00) L 11/06/16 06:30 % CD8 Cells 35 Percent (12-42) 11/06/16 06:30 Absolute CD8 Count 447 Cells/mcL (180-1170) 03/30/17 06:30 Absolute CD16/CD56 Count 107 Cells/mcL (70-760) 11/06/16 06:30 % CD19 Cells 27 Percent (6-29) 11/06/16 06:30 Absolute CD19 Count 343 Cells/mcL (110-660) 11/06/16 06:30 Hepatitis A IgM Ab Negative (NEGATIVE) 11/06/16 07:30 Hep Bs Antigen Negative (NEGATIVE) 11/06/16 07:30 Hep B Core IgM Ab Negative (NEGATIVE) 11/06/16 07:30 Hepatitis C Antibody Negative (NEGATIVE) 11/06/16 07:30 HIV-1 RNA Qnt (RT-PCR) <1.30 not detected (<1.30) 11/06/16 06:30 Influenza Typ A,B (EIA) Negative for flu a/b (NEGATIVE) 11/05/16 13:00 TB Test (QFT) Nil 0.05 IU/mL (()) 11/09/16 10:20 TB Test Mitogen - Nil >10.00 IU/mL (()) 11/09/16 10:20 TB Test TB - Nil <0.00 IU/mL (()) 11/09/16 10:20 TB Test (QFT) Negative (Negative) 11/09/16 10:20 Beta-(1,3)-D-Glucan 103 pg/mL (()) H 11/06/16 11:12 B-(1,3)-D-Glucan Intrp 11/06/16 11:12 - Hospital Course Hospital Course: 25 yo female with pmh HIV, asthma, HTN, ESRD on dialysis MWF presenting with chest pain x 1 day. Pain began around 9 PM day prior to evaluation. She was laying in bed at home. Pain came on suddenly, midsternal. Ultimately, radiated to right breast and down along right side to right abdomen. Describes it as pressure sensation. Also hurts when she takes a deep breath and somewhat reproducible to palpation. Has associated sob and non productive cough. Pain is 10/10, staying the same. Laying on left side makes it better, laying flat makes it worse. Pt is on her period now. She does not make urine. She also reports 4- 5 episodes of non bloody diarrhea. Discharge Exam - Head Exam Head Exam: ATRAUMATIC, NORMOCEPHALIC - Eye Exam Eye Exam: EOMI, Normal appearance Pupil Exam: PERRL - ENT Exam ENT Exam: Mucous Membranes Moist - Respiratory Exam Respiratory Exam: Clear to PA & Lateral, NORMAL BREATHING PATTERN - Cardiovascular Exam Cardiovascular Exam: RRR, +S1, +S2 - GI/Abdominal Exam GI & Abdominal Exam: Normal Bowel Sounds, Soft. absent: Distended, Firm, Guarding, Rebound, Tenderness - Extremities Exam Extremities exam: normal capillary refill, pedal pulses present Additional comments: LUE AVF - Back Exam Back exam: absent: CVA tenderness (L), CVA tenderness (R) - Neurological Exam Neurological exam: Alert, CN II-XII Intact, Normal Gait, Oriented x3, Reflexes Normal - Psychiatric Exam Psychiatric exam: Normal Affect, Normal Mood - Skin Skin Exam: Dry, Intact, Normal Color, Warm Discharge Plan - Discharge Medications Prescriptions: Docusate [Colace] 100 mg PO BID #60 cap Polyethylene Glycol 3350 [Miralax] 17 gm PO BID PRN #60 packet PRN Reason: Constipation oxyCODONE/Acetaminophen [Percocet 5/325 mg Tab] 1 ea PO Q8 #8 tab - Follow Up Plan Condition: STABLE Disposition: HOME/ ROUTINE Additional Instructions: Patient is medically stable for discharge to home by Dr. Loving. Patient is to start Percocet 5/325 mg 1 tab every 4-6 hours as needed for pain, Colace 100 mg by mouth twice per day, and Miralax 17 gm by mouth as needed. Patient is to follow up with PMD and her Final Inspector [employer] Wheel within 1 week of discharge. Patient may resume physical activity as tolerated. Please return to ED if symptoms persist or condition worsens. All instructions stated above were discussed with the patient and her spouse. They both verbalized understanding and agreement
[2016-11-12] MEDS: DARUNAVIR 800 MG PO SCH (10:11)
[2016-11-12] MEDS ORDERED: Morphine 2 mg/ml ISec IVP STA (12:07)
[2016-11-12] MEDS: Atovaquone 750 mg/5 ml Susp UD PO SCH ×2 (12:26→19:54)
[2016-11-12 14:18] LABS: ADD MANUAL DIFF? NO
[2016-11-12 14:26] LABS: BASO # 0.01 K/mm3 (0.0-2.0); BASO % 0.2 % (0.0-3.0); EOS # 0.3 (0.0-0.7); GRAN % 60.1 % (50.0-68.0); HEMATOCRIT 28.3 % (36.0-48.0); LYMPH # 1.1 (1.2-3.4); LYMPH % 24.9 % (22.0-35.0); MEAN CELL VOLUME 85.2 fL (80.0-105.0); MEAN CORPUSCULAR HEMOGLOBIN 28.3 pg (25.0-35.0); MEAN CORPUSCULAR HGB CONC 33.2 g/dl (31.0-37.0); MEAN PLATELET VOLUME 9.9 fl (7.0-11.0); MONO # 0.4 (0.1-0.6); MONO % 8.8 % (1.0-6.0); PLATELET COUNT 151 10^3/uL (120.0-450.0); RED CELL DISTRIBUTION WIDTH 15.8 % (11.5-14.5); WHITE BLOOD COUNT 4.3 10^3/ul (4.5-11.0)
[2016-11-12 14:29] LABS: IRON 46 ug/dL (45-180)
[2016-11-12 14:31] LABS: ALB/GLOB RATIO 1.1 (1.1-1.8); BILIRUBIN,TOTAL 0.8 mg/dL (0.2-1.3); MAGNESIUM 2.1 mg/dL (1.7-2.2); PHOSPHOROUS 7.7 mg/dL (2.5-4.5); POTASSIUM 5.1 mmol/L (3.6-5.0); TOTAL PROTEIN 7.6 g/dL (5.8-8.3)
--- NOTE | 2016-11-12 18:16 | CP.PCM.PN ---
Subjective - Date & Time of Evaluation Date of Evaluation: 11/12/16 Time of Evaluation: 11:00 - Subjective Subjective: Patient is comfortable, not in distress, no fevers overnight, less pain in the chest. Objective - Vital Signs/Intake and Output Vital Signs (last 24 hours): Temp Pulse Resp BP Pulse Ox 98 F 90 20 143/100 H 96 11/12/16 08:51 11/12/16 08:51 11/12/16 08:51 11/11/16 19:05 11/12/16 08:51 Intake and Output: 11/12/16 11/12/16 06:59 18:59 Intake Total 960 Output Total 0 Balance 960 - Medications Medications: Current Medications Abacavir Sulfate (Ziagen) 300 mg PO BID [facility] Last Admin: 11/12/16 12:29 Dose: Not Given Acetaminophen (Tylenol 325mg Tab) 650 mg PO Q6H PRN PRN Reason: Fever >100.4 F Last Admin: 11/06/16 05:12 Dose: 650 mg Atovaquone (Mepron) 750 mg PO BID [facility] Last Admin: 11/12/16 12:26 Dose: Not Given Azithromycin (Zithromax) 500 mg PO DAILY [facility] PRN Reason: Protocol Last Admin: 11/11/16 09:45 Dose: 500 mg Cinacalcet (Sensipar) 60 mg PO HS [facility] Last Admin: 11/11/16 22:18 Dose: 60 mg Clonidine HCl (Catapres) 0.2 mg PO BID [facility] Last Admin: 11/12/16 10:11 Dose: Not Given Diphenhydramine HCl (Benadryl) 50 mg IVP Q4H PRN PRN Reason: Allergy symptoms Last Admin: 11/12/16 12:27 Dose: 50 mg Docusate Sodium (Colace) 100 mg PO BID [facility] Last Admin: 11/12/16 12:26 Dose: Not Given Hydralazine HCl (Apresoline) 25 mg PO TID [facility] Last Admin: 11/12/16 13:23 Dose: Not Given Meropenem 500 mg/ Sodium (Chloride) 100 mls @ 100 mls/hr IVPB DAILY [facility] PRN Reason: Protocol Last Admin: 11/11/16 09:57 Dose: 100 mls/hr Labetalol HCl (Trandate) 300 mg PO BID [facility] Last Admin: 11/12/16 10:12 Dose: Not Given Darunavir [Prezista] 800 Mg (Home Med ) 800 mg PO DAILY [facility] Last Admin: 11/12/16 10:11 Dose: Not Given Ramelteon 8 Mg (Home (Med)) 8 mg PO HS PRN PRN Reason: Insomnia Oxycodone/Acetaminophen (Percocet 5/325 Mg Tab) 1 tab PO Q4H PRN PRN Reason: Pain, moderate (4-7) Stop: 11/15/16 07:59 Pantoprazole Sodium (Protonix Ec Tab) 40 mg PO 0630 [facility] Last Admin: 11/12/16 07:01 Dose: 40 mg Polyethylene Glycol (Miralax) 17 gm PO BID PRN PRN Reason: Constipation Raltegravir (Isentress) 400 mg PO BID [facility] Last Admin: 11/12/16 12:26 Dose: Not Given Ritonavir (Norvir) 100 mg PO DAILY [facility] Last Admin: 11/11/16 09:44 Dose: 100 mg Sevelamer HCl (Renagel) 2,400 mg PO WM [facility] Last Admin: 11/12/16 12:28 Dose: 2,400 mg Tenofovir Disoproxil Fumarate (Viread) 300 mg PO QWK [facility] Last Admin: 11/06/16 09:41 Dose: 300 mg - Labs Labs: 11/12/16 14:16 11/12/16 14:16 - Constitutional Appears: Non-toxic, No Acute Distress - Head Exam Head Exam: NORMAL INSPECTION - ENT Exam ENT Exam: Mucous Membranes Moist - Neck Exam Neck Exam: absent: Lymphadenopathy, Meningismus - Respiratory Exam Respiratory Exam: Decreased Breath Sounds - Cardiovascular Exam Cardiovascular Exam: +S1, +S2 - GI/Abdominal Exam GI & Abdominal Exam: Soft. absent: Tenderness Assessment and Plan - Assessment and Plan (Free Text) Plan: Assessment Sepsis secondary to left sided healthcare-associated pneumonia with possible gram positive cocci and/or gram negative bacilli clinically improved HIV, diagnosed years ago, last CD4 count as an outpatient was 384 in 2015, most recent virus load 2015 was undetectable, currently on cART (with history of low CD4 count and was previously on prophylaxis) ESRD on HD S/P kidney transplant S/P cholecystectomy asthma HTN Plan on Merrem and Zithromax day 7 can d/c after today sputum AFB negative - unlikely TB (her last PPD in November 2015 was negative and has been negative since 2012 when it was first checked in HIV clinic in [place], no cavitary lesion, although there is mediastinal lymphadenopathy - this needs to be follow up as an outpatient) Will continue Abacavir, adjust Tenofovir to once weekly dosing, continue boosted Darunavir and Raltegravir Follow up HIV virus load; CD4 count is 328 during this admission Discussed with dr. Loving
--- NOTE | 2016-11-12 18:30 | US ---
HISTORY: Leg pain and swelling. Evaluate for DVT PHYSICIAN(S): Howie Mays MD. TECHNIQUE: Duplex sonography and color-flow Doppler with graded compression were used to evaluate the deep venous systems of both lower extremities. FINDINGS: The visualized deep venous systems of both lower extremities are sonographically normal and compressible. Normal wave forms and augmentation are seen. There is no sonographic evidence for deep venous thrombosis in the visualized segments of both lower extremities. IMPRESSION: No sonographic evidence for deep venous thrombosis in the visualized segments of both lower extremities.
--- NOTE | 2016-11-12 19:44 | PN ---
DATE: 11/12/2016 A 25-year-old female with history of ESRD on hemodialysis, status post failed renal transplant, hyper tension, HIV, on HAART admitted with healthcare-associated pneumonia. Nephrology service consulted f or continuation of routine hemodialysis. The patient reports no shortness of breath, no fevers, chil ls, still having right-sided flank pain that she says began about 8 days ago, gave conflicting histor y to primary team. Also complaining of bilateral lower leg pain. PHYSICAL EXAMINATION: VITAL SIGNS: Blood pressure during dialysis at one point about 150s/90s. GENERAL: No apparent distress, lying in dialysis chair comfortably, able to converse in full sentenc es coherently. HEENT: Moist mucous membranes. No scleral icterus. CHEST: Clear to auscultation bilaterally. No rhonchi, no wheezes, no rales. HEART: S1, S2 positive, no murmurs, no gallops, no rubs. ABDOMEN: Soft, nontender, nondistended, mild right-sided tenderness, mild right flank tenderness. EXTREMITIES: Moderate bilateral lower leg edema. ASSESSMENT: 1. End-stage renal disease on hemodialysis with evidence of volume excess on exam, had ultrafiltrati on of about 2 liters today, counseled on salt and fluid restriction. 2. Hypertension, uncontrolled. The patient currently on lower dose of clonidine 0.2 mg b.i.d., down from 0.3 mg. JIMMIE inhibitor also being held, should restart JIMMIE inhibitor. 3. Healthcare-associated pneumonia, on meropenem, being dosed at 500 mg daily, day 7 of 7 today. Ne ed to ensure medication is dosed after dialysis as a drug and its metabolites are readily dialyzable. 4. Human immunodeficiency virus on HAART. Continue per ID at recommendations. 5. Chronic kidney disease, mineral bone disease, severe hyperphosphatemia. The patient regularly re fuses phosphate binders. The patient counseled on the need to have phosphate levels controlled in or kathryn to limit vascular calcifications. 6. Anemia. Given dose of darbepoetin. Iron replete per labs done today with iron sat of 27%. 7. Right abdominal/flank pain. The patient appears comfortable at rest. Imaging done on presentati on was unremarkable for abdominal or pelvic pathology that would explain patient's symptoms, suspect pain seeking behavior. Hieu Chandana NORRIS cc: [id number] TT: 11/12/2016 19:43:39 Confirmation # [id number] Dictation # [id number] jn
[2016-11-12 19:57] VITALS: BP 126/100; PULSE 93
== END 2016-11-12 20:52 | disposition home or self-care (01) | DRG 974 ==
LOC: ED 23:30 → ERH 11-05 03:27 → UNDOADMOB 11-05 03:27 → ERH 11-05 04:10 → 2RNO 11-05 07:46 → 2RSO 11-05 22:23 → 2RNO 11-06 09:17 → 2RSO 11-06 09:17 → OBSVTOIN 11-06 09:17 → ERH 11-06 09:17 → INTOOBSV 11-06 13:35 → OBSVTOIN 11-06 13:35 → 5RSO 11-07 23:28
PROVIDERS: ADMIT Internal Medicine; ATTEND Internal Medicine
PROC: 5A1D60Z (ICD-10-PCS; principal; 2016-11-06)
DX: A41.9 Sepsis, unspecified organism (principal); B20 Human immunodeficiency virus [HIV] disease; N18.6 End stage renal disease; J18.9 Pneumonia, unspecified organism; I12.0 Hypertensive chronic kidney disease with stage 5 chronic kidney disease or end stage renal disease; Z94.0 Kidney transplant status; E83.39 Other disorders of phosphorus metabolism; J45.909 Unspecified asthma, uncomplicated; K59.00 Constipation, unspecified; E87.5 Hyperkalemia; R07.89 Other chest pain; D64.9 Anemia, unspecified; Y95 Nosocomial condition; Z99.2 Dependence on renal dialysis